=== PATIENT | male | born 1950 | race Caucasian/White ===

== ENCOUNTER 2016-11-20 13:05 | Emergency (ER) | payer MEDICARE, MEDICAID ==
[2016-11-20 13:12] VITALS: BMI 25.2
[2016-11-20] MEDS ORDERED: Sodium Chloride 0.9% 1,000 ML IV ONE (13:58)
[2016-11-20 14:30] LABS: BASO # 0.1 K/uL (0.0-0.2); BASO % 0.8 % (0.0-2.0); EOS # 0.4 K/uL (0.0-0.7); EOS % 4.1 % (0.0-4.0); HEMATOCRIT 42.2 % (35.0-51.0); LYMPH # 1.9 K/uL (1.0-4.3); LYMPH % 17.9 % (20.0-40.0); MEAN CELL VOLUME 84.4 fL (80.0-94.0); MEAN CORPUSCULAR HEMOGLOBIN 28.4 pg (27.0-31.0); MEAN CORPUSCULAR HGB CONC 33.7 g/dL (33.0-37.0); MEAN PLATELET VOLUME 8.5 fL (7.2-11.7); MONO # 0.6 K/uL (0.0-0.8); RED CELL DISTRIBUTION WIDTH 14.5 % (11.5-14.5); WHITE BLOOD COUNT 10.6 K/uL (4.8-10.8)
--- NOTE | 2016-11-20 14:36 | RAD ---
PROCEDURE: CHEST RADIOGRAPH, 1 VIEW HISTORY: Generalized weakness COMPARISON: Zero 03/24/2016. FINDINGS: LUNGS: Clear. PLEURA: No pneumothorax or pleural fluid seen. CARDIOVASCULAR: No radiographic findings to suggest acute or significant cardiovascular disease. OSSEOUS STRUCTURES: Healed left clavicular fracture and old healed right rib fractures. VISUALIZED UPPER ABDOMEN: Normal. OTHER FINDINGS: None. IMPRESSION: No active disease. No acute/significant interval changes. No preliminary report provided by emergency department personnel.
[2016-11-20 14:38] LABS: CHLORIDE 96 mmol/L (98-107); POTASSIUM 4.2 mmol/L (3.6-5.2); SODIUM 136 mmol/L (132-148)
[2016-11-20 14:40] LABS: BILIRUBIN,TOTAL 0.6 mg/dL (0.2-1.3); CARBON DIOXIDE 25 mmol/L (22-30); GFR AFRICAN-AMERICAN > 60
[2016-11-20 14:41] LABS: ALB/GLOB RATIO 1.3 (1.0-2.1); ALKALINE PHOSPHATASE 82 U/L (38-126); ALT/SGPT 14 U/L (21-72); AST/SGOT 24 U/L (17-59); BLOOD UREA NITROGEN 13 mg/dL (9-20); CALCIUM 8.6 mg/dl (8.6-10.4); GLUCOSE,RANDOM 112 mg/dL (75-110); PHOSPHOROUS 3.4 mg/dL (2.5-4.5); TOTAL PROTEIN 7.3 g/dL (6.3-8.3)
[2016-11-20 14:42] LABS: MAGNESIUM 1.5 mg/dL (1.6-2.3)
[2016-11-20] MEDS ORDERED: Sodium Chloride 0.9% 1,000 ML ONE (14:46)
[2016-11-20] MEDS ORDERED: Magnesium Sulfate 1 gm in D5W 1 GM/100 ML BAG IVPB ONE (15:14)
[2016-11-20 15:58] LABS: RBC URINE 3 /hpf (0-3); URINE BILIRUBIN NEGATIVE (NEGATIVE); URINE BLOOD NEGATIVE (NEGATIVE); URINE COLOR Yellow (YELLOW); URINE GLUCOSE (UA) 1+ mg/dL (Normal); URINE KETONE TRACE mg/dL (NEGATIVE); URINE LEUKOCYTE ESTERASE NEG Leu/uL (Negative); URINE PROTEIN NEGATIVE (NEGATIVE); URINE UROBILINOGEN NORMAL mg/dL (0.2-1.0); WBC URINE 1 /hpf (0-5)
--- NOTE | 2016-11-20 19:12 | C.PDOC ---
History Of Present Illness Pt c/o worsening of his Parkinson symptoms (tremor/stiffness). His medications were changes 2 weeks ago. His Pramipexole was discontinued. Time Seen by Provider: 11/20/16 13:50 Chief Complaint (Nursing): Weakness/Neurological Deficit History Per: Patient, EMS Onset/Duration Of Symptoms: Days (3) Current Symptoms Are (Timing): Still Present Current Symptoms: Generalized weakness Fall Associated With With Symptoms: No Severity: Moderate - Symptoms Of CVA Associated Symptoms: Decreased Ability To Walk Recent Head Trauma: No Past Medical History Reviewed: Historical Data, Nursing Documentation, Vital Signs Vital Signs: Last Vital Signs Temp 98.1 F 11/20/16 18:00 Pulse 89 11/20/16 18:00 Resp 20 11/20/16 18:00 BP 127/65 11/20/16 18:00 Pulse Ox 97 11/20/16 18:00 - Medical History PMH: Anxiety, Dementia, Depression, Diabetes, Fractures, HTN, Parkinson's Disease - [facility] Procedures COLONOSCOPY (08/22/13) INJECT/INFUSE ELECTROLYT (06/22/13) INJECT/INFUSE NEC (06/22/13) Family History: States: Unknown Family Hx - Social History Hx Tobacco Use: No Hx Alcohol Use: No Hx Substance Use: No - Immunization History Hx Tetanus Toxoid Vaccination: Yes Hx Influenza Vaccination: Yes Hx Pneumococcal Vaccination: Yes Review Of Systems Except As Marked, All Systems Reviewed And Found Negative. Constitutional: Positive for: Weakness. Negative for: Fever Cardiovascular: Negative for: Chest Pain Respiratory: Negative for: Shortness of Breath Gastrointestinal: Negative for: Vomiting, Abdominal Pain, Diarrhea Musculoskeletal: Negative for: Neck Pain, Back Pain Skin: Negative for: Rash Neurological: Negative for: Weakness, Numbness, Seizures, Headache Physical Exam - Physical Exam Appears: Chronically Ill Skin: Normal Color, Warm, Dry, No Rash Head: Atraumatic, Normacephalic Eye(s): bilateral: PERRL, EOMI Neck: Normal ROM, Supple Cardiovascular: Rhythm Regular Respiratory: Normal Breath Sounds, No Accessory Muscle Use Gastrointestinal/Abdominal: Soft, No Tenderness Extremity: Normal ROM Neurological/Psych: Oriented x3, Other (Mild tremor and stiffness in b/l upper and lower extremities) ED Course And Treatment - Laboratory Results Result Diagrams: 11/20/16 14:25 11/20/16 14:25 Lab Interpretation: No Acute Changes O2 Sat by Pulse Oximetry: 97 Pulse Ox Interpretation: Normal Progress Note: Pt feels better after taking the Rytary. Reassessment Condition: Improved Disposition Discussed With Dr.: Rashi Yarbrough Comment: He states that he has recently increased the dose of Rytary 2 weeks ago , but apparently the pt is still using the lower dose. He recommened increasing the frequency of Rytary to QID until pt starts taking the higher dose. Doctor Will See Patient In The: Office Counseled Patient/Family Regarding: Studies Performed, Diagnosis, Need For Followup - Disposition Referrals: Rashi Yarbrough MD [Staff Provider] - Disposition: HOME/ ROUTINE Disposition Time: 19:19 Condition: IMPROVED Additional Instructions: Take the Rytary (23.75mg/95mg) four times a day until you start the higher dose. Follow up with your doctor for further evaluation and treatment. Return to the ER if you develop worsening of symptoms or if you have any other concerns. Instructions: Parkinson Disease (ED) Forms: [employer] (Azeri) Print Language: LITHUANIAN - Clinical Impression Clinical Impression: Parkinson disease
[2016-11-20 19:34] VITALS: BP 135/74; PULSE 75; RESP 18; TEMP 98.5; O2SAT 99
== END 2016-11-20 19:34 | disposition home or self-care (01) ==
LOC: C.ER 13:05
DX: G20 Parkinson's disease (principal); F41.9 Anxiety disorder, unspecified; F03.90 Unspecified dementia, unspecified severity, without behavioral disturbance, psychotic disturbance, mood disturbance, and anxiety; I10 Essential (primary) hypertension; E11.9 Type 2 diabetes mellitus without complications; Z87.891 Personal history of nicotine dependence
CPT/HCPCS: 71010; 80053; 81001; 83735; 83880; 84100; 84484; 85025; 87086; 96361; 96365; 99285; J3475; J7040

== ENCOUNTER 2017-02-02 12:32 | Emergency (ER) | payer MEDICARE, MEDICAID ==
[2017-02-02 12:32] VITALS: BMI 25.2
--- NOTE | 2017-02-02 13:30 | C.PDOC ---
History Of Present Illness 66 y.o male, history of parkinsons disease and diabetes, presents to ED with c/ o tremors, weakness, and nausea for 3 days. Patient is a poor historian. Pt states he lives by himself. Patient has been seen in this ER several times in the past w/ similar presentation. Denies any specific complaints. Denies fever or other complaints. Time Seen by Provider: 02/02/17 13:03 Chief Complaint (Nursing): Weakness/Neurological Deficit History Per: Patient History/Exam Limitations: other (poor historian) Current Symptoms Are (Timing): Still Present Fall Associated With With Symptoms: No Past Medical History Reviewed: Historical Data, Nursing Documentation, Vital Signs Vital Signs: Last Vital Signs Temp 97.9 F 02/02/17 18:10 Pulse 90 02/02/17 18:10 Resp 18 02/02/17 18:10 BP 98/53 L 02/02/17 18:10 Pulse Ox 96 02/02/17 18:10 - Medical History PMH: Anxiety, Dementia, Depression, Diabetes, Fractures, HTN, Parkinson's Disease - [email or web address] Procedures COLONOSCOPY (08/22/13) INJECT/INFUSE ELECTROLYT (06/22/13) INJECT/INFUSE NEC (06/22/13) Family History: States: Unknown Family Hx - Social History Hx Tobacco Use: No Hx Alcohol Use: No Hx Substance Use: No - Immunization History Hx Tetanus Toxoid Vaccination: Yes Hx Influenza Vaccination: Yes Hx Pneumococcal Vaccination: Yes Review Of Systems Except As Marked, All Systems Reviewed And Found Negative. Constitutional: Positive for: Weakness, Other (generalized tremors). Negative for: Fever, Chills Cardiovascular: Negative for: Chest Pain Respiratory: Negative for: Cough, Shortness of Breath Gastrointestinal: Positive for: Nausea. Negative for: Vomiting Skin: Negative for: Rash Physical Exam - Physical Exam Appears: Non-toxic, No Acute Distress Skin: Warm, Dry Head: Atraumatic, Normacephalic Chest: Symmetrical, No Tenderness Cardiovascular: Rhythm Regular Respiratory: Normal Breath Sounds, No Rales, No Rhonchi, No Wheezing Gastrointestinal/Abdominal: Normal Exam, Soft, No Tenderness Back: Normal Inspection Extremity: Normal ROM Neurological/Psych: Oriented x3, Other (resting tremor) ED Course And Treatment - Laboratory Results Result Diagrams: 02/02/17 13:39 02/02/17 13:39 ECG: Interpreted By Me, Viewed By Me ECG Rhythm: Sinus Rhythm ECG Interpretation: No Acute Changes Interpretation Of ECG: No acute ST wave changes. Rate From EC O2 Sat by Pulse Oximetry: 97 (RA) Pulse Ox Interpretation: Normal Medical Decision Making Medical Decision Making: parkinsons - suspect exacerbation - pt lvies by himself, unable to care for self Plan: EKG, CxR, labs ordered. Progress: 500: accepte dto dr samuels service for managment of parkinsons meds. pt cannot care for self as has parkinsons, lives byhimself. Disposition - Disposition Disposition: HOSPITALIZED Disposition Time: 18:12 Condition: STABLE - Clinical Impression Clinical Impression: Parkinsons, Weakness - Scribe Statement The provider has reviewed the documentation as recorded by the Scribe SM All medical record entries made by the Scribe were at my direction and personally dictated by me. I have reviewed the chart and agree that the record accurately reflects my personal performance of the history, physical exam, medical decision making, and the department course for this patient. I have also personally directed, reviewed, and agree with the discharge instructions and disposition.
[2017-02-02 13:46] LABS: BASO # 0.1 K/uL (0.0-0.2); BASO % 0.5 % (0.0-2.0); EOS # 0.3 K/uL (0.0-0.7); EOS % 2.9 % (0.0-4.0); HEMATOCRIT 42.1 % (35.0-51.0); LYMPH # 1.6 K/uL (1.0-4.3); LYMPH % 15.8 % (20.0-40.0); MEAN CELL VOLUME 86.3 fL (80.0-94.0); MEAN CORPUSCULAR HEMOGLOBIN 28.9 pg (27.0-31.0); MEAN CORPUSCULAR HGB CONC 33.5 g/dL (33.0-37.0); MEAN PLATELET VOLUME 7.7 fL (7.2-11.7); MONO # 0.7 K/uL (0.0-0.8); MONO % 7.2 % (0.0-10.0); NRBC % 0.1 % (0.0-2.0); RED CELL DISTRIBUTION WIDTH 14.1 % (11.5-14.5); WHITE BLOOD COUNT 10.1 K/uL (4.8-10.8)
[2017-02-02 13:53] LABS: INR 1.1
--- NOTE | 2017-02-02 14:10 | RAD ---
PROCEDURE: CHEST RADIOGRAPH, 1 VIEW HISTORY: chest pain COMPARISON: None available. FINDINGS: LUNGS: Clear. PLEURA: No pneumothorax or pleural fluid seen. CARDIOVASCULAR: Atherosclerotic aortic calcifications. Cardiomediastinal silhouette is unchanged. OSSEOUS STRUCTURES: Multiple old right-sided rib fractures are re- demonstrated. VISUALIZED UPPER ABDOMEN: Normal. OTHER FINDINGS: None. IMPRESSION: No active disease.
[2017-02-02 14:15] LABS: ALB/GLOB RATIO 1.1 (1.0-2.1); ALKALINE PHOSPHATASE 82 U/L (38-126); ALT/SGPT 23 U/L (21-72); AST/SGOT 26 U/L (17-59); BILIRUBIN,TOTAL 0.7 mg/dL (0.2-1.3); BLOOD UREA NITROGEN 24 mg/dL (9-20); CALCIUM 8.5 mg/dl (8.6-10.4); CARBON DIOXIDE 24 mmol/L (22-30); CHLORIDE 94 mmol/L (98-107); GFR AFRICAN-AMERICAN > 60; GLUCOSE,RANDOM 112 mg/dL (75-110); POTASSIUM 3.7 mmol/L (3.6-5.2); SODIUM 131 mmol/L (132-148); TOTAL PROTEIN 7.9 g/dL (6.3-8.3)
[2017-02-02 14:27] LABS: RBC URINE 2 /hpf (0-3); URINE BACTERIA RARE (<OCC); URINE BILIRUBIN NEGATIVE (NEGATIVE); URINE BLOOD NEGATIVE (NEGATIVE); URINE COLOR Amber (YELLOW); URINE GLUCOSE (UA) NORMAL (Normal); URINE KETONE 1+ mg/dL (NEGATIVE); URINE LEUKOCYTE ESTERASE NEG Leu/uL (Negative); URINE PROTEIN NEGATIVE (NEGATIVE); WBC URINE 3 /hpf (0-5)
[2017-02-02] MEDS ORDERED: Carbidopa/Levodopa 25/250 PO STA (14:55)
[2017-02-02 18:10] VITALS: BP 98/53; PULSE 90; RESP 18; TEMP 97.9
[2017-02-02 18:13] VITALS: O2SAT 97
--- NOTE | 2017-02-02 19:48 | CP.PCM.HP ---
History of Present Illness - History of Present Illness History of Present Illness: Chief complaint: Dizziness History of present illness: 66-year-old male with history of Parkinson disease, diabetes, hypertension, hypercholesterolemia, diabetic neuropathy came to the emergency room with increasing tremor, weakness. He is also having some nausea. He is concerned about increasing tremor. Patient has recently seen by neurologist, the medication was adjusted, but the patient was not happy. Patient is currently taking carbidopa levodopa, at least 5 times daily. Sometimes he takes even higher dose. In spite of that his condition is not improving. Still noticing tremor, bradykinesia. Past medical history: Hypertension, diabetes, hypercholesterolemia, Parkinson disease, with disability , and recently also had a fall Surgical history none Allergies: Allergic to no medication Personal history: Patient lives by himself. He has several health daily. Social history: Nonsmoker nonalcoholic. Asst.: Patient is currently having no headache, no chest pain. Feeling okay. Denies any dizziness at this time. He had some tremor and weakness in the past and Vital signs reviewed No neck vein distention noted Chest good air entry bilaterally, no wheezing or rales noted CVS regular heart sound, no murmur noted Abdomen soft, nontender. Extremities no pedal edema Increasing shaking and tremor noted. Patient is able to ambulate with walker Patient's labs today Vital signs reviewed Chest x-ray nonspecific. EKG showing normal sinus rhythm. No ST-T changes noted Assessment and recognition: 66-year-old male now admitted to the hospital with weakness. Labs nonspecific. Hypertension controlled. Diabetes stable. Parkinson disease, some decompensation noted. Patient will need outpatient physical therapy. he wanted to go home at this time, there is no reason for him to stay in the hospital at this time. I workup will be done as an outpatient. I will have the patient as outpatient in 1 week. Patient recently had neurological testing and balance testing as an outpatient. We'll follow-up the results Present on Admission - Present on Admission Any Indicators Present on Admission: No History of DVT/PE: No History of Uncontrolled Diabetes: No Urinary Catheter: No Decubitus Ulcer Present: No Past Patient History - Infectious Disease Hx of Infectious Diseases: None - Tetanus Immunizations Tetanus Immunization: Unknown - Past Medical History & Family History Past Medical History?: Yes - Past Social History Smoking Status: Former Smoker - CARDIAC Hx Hypertension: Yes - PULMONARY Hx Respiratory Disorders: No - NEUROLOGICAL Hx Dementia: Yes Hx Parkinson's Disease: Yes - HEENT Hx HEENT Problems: No - RENAL Hx Chronic Kidney Disease: No - ENDOCRINE/METABOLIC Hx Endocrine Disorders: Yes Hx Diabetes Mellitus Type 2: Yes - HEMATOLOGICAL/ONCOLOGICAL Hx Blood Disorders: No - INTEGUMENTARY Hx Dermatological Problems: No - MUSCULOSKELETAL/RHEUMATOLOGICAL Hx Fractures: Yes - GASTROINTESTINAL Hx Gastrointestinal Disorders: No - GENITOURINARY/GYNECOLOGICAL Hx Genitourinary Disorders: No - PSYCHIATRIC Hx Anxiety: Yes Hx Depression: Yes Hx Substance Use: No - SURGICAL HISTORY Hx Surgeries: Yes Hx Eye Surgery: Yes - ANESTHESIA Hx Anesthesia: Yes Hx Anesthesia Reactions: No Hx Malignant Hyperthermia: No Meds Allergies/Adverse Reactions: Allergies Allergy/AdvReac Type Severity Reaction Status Date / Time No Known Allergies Allergy Verified 02/02/17 13:01 Results - Vital Signs Recent Vital Signs: Last Vital Signs Temp 97.9 F 02/02/17 18:10 Pulse 90 02/02/17 18:10 Resp 18 02/02/17 18:10 BP 98/53 L 02/02/17 18:10 Pulse Ox 97 02/02/17 18:15 - Labs Result Diagrams: 02/02/17 13:39 02/02/17 13:39 Labs: Laboratory Results - last 24 hr 02/02/17 02/02/17 02/02/17 13:39 13:39 13:39 WBC 10.1 RBC 4.87 Hgb 14.1 Hct 42.1 MCV 86.3 MCH 28.9 MCHC 33.5 RDW 14.1 Plt Count 340 D MPV 7.7 Neut % (Auto) 73.6 Lymph % (Auto) 15.8 L [place] % (Auto) 7.2 Eos % (Auto) 2.9 Baso % (Auto) 0.5 Neut # 7.4 H Lymph # 1.6 [place] # 0.7 Eos # 0.3 Baso # 0.1 PT 12.2 INR 1.1 APTT 28 Sodium 131 L Potassium 3.7 Chloride 94 L Carbon Dioxide 24 Anion Gap 17 BUN 24 H Creatinine 0.8 Est GFR ( Amer) > 60 Est GFR (Non-Af Amer) > 60 Random Glucose 112 H Calcium 8.5 L Total Bilirubin 0.7 AST 26 ALT 23 Alkaline Phosphatase 82 Troponin I < 0.0120 Total Protein 7.9 Albumin 4.1 Globulin 3.8 Albumin/Globulin Ratio 1.1 Urine Color Urine Clarity Urine pH Ur Specific [place] Urine Protein Urine Glucose (UA) Urine Ketones Urine Blood Urine Nitrate Urine Bilirubin Urine Urobilinogen Ur Leukocyte Esterase Urine WBC (Auto) Urine RBC (Auto) Ur Squamous Epith Cells Urine Bacteria Hyaline Casts 02/02/17 14:13 WBC RBC Hgb Hct MCV MCH MCHC RDW Plt Count MPV Neut % (Auto) Lymph % (Auto) [place] % (Auto) Eos % (Auto) Baso % (Auto) Neut # Lymph # [place] # Eos # Baso # PT INR APTT Sodium Potassium Chloride Carbon Dioxide Anion Gap BUN Creatinine Est GFR ( Amer) Est GFR (Non-Af Amer) Random Glucose Calcium Total Bilirubin AST ALT Alkaline Phosphatase Troponin I Total Protein Albumin Globulin Albumin/Globulin Ratio Urine Color [place] Urine Clarity Clear Urine pH 5.0 Ur Specific [place] 1.024 Urine Protein Negative Urine Glucose (UA) Normal Urine Ketones 1+ H Urine Blood Negative Urine Nitrate Negative Urine Bilirubin Negative Urine Urobilinogen 2.0 Ur Leukocyte Esterase Neg Urine WBC (Auto) 3 Urine RBC (Auto) 2 Ur Squamous Epith Cells 1 Urine Bacteria Rare Hyaline Casts 3-5 H
[2017-02-03] MEDS ORDERED: Enoxaparin 40 mg Syringe SC SCH (10:00)
--- NOTE | 2017-02-05 19:26 | CARD ---
APPROVED REPORT EKG Measurement Heart [id number] <Conclusion> Normal sinus rhythm Normal ECG
== END 2017-02-02 20:45 | disposition home or self-care (01) ==
LOC: C.ER 12:32 → C.9E 14:33 → INTOOBSV 14:33 → UNDOADMOB 14:33 → C.3T 19:18 → C.9E 19:18 → UNDODISOB 19:42 → C.3T 20:11 → C.9E 20:11
DX: G20 Parkinson's disease (principal); R53.1 Weakness; E11.40 Type 2 diabetes mellitus with diabetic neuropathy, unspecified; E78.00 Pure hypercholesterolemia, unspecified; F03.90 Unspecified dementia, unspecified severity, without behavioral disturbance, psychotic disturbance, mood disturbance, and anxiety; I10 Essential (primary) hypertension; Z87.891 Personal history of nicotine dependence

== ENCOUNTER 2017-02-24 14:01 | Emergency (ER) | payer MEDICARE, MEDICAID ==
[2017-02-24 14:40] VITALS: BMI 31.4
[2017-02-24 14:45] VITALS: RESP 18
[2017-02-24 15:21] VITALS: TEMP 98.4
--- NOTE | 2017-02-24 15:39 | C.PDOC ---
History Of Present Illness 66 y/o male with PMHx of Parkinson's disease presents to ED sent by [facility] for low blood pressure. At ED patient is asymptomatic and has no physical complaints at this time. Time Seen by Provider: 02/24/17 14:23 Chief Complaint (Nursing): Medical Clearance History Per: Patient History/Exam Limitations: no limitations Onset/Duration Of Symptoms: Days Current Symptoms Are (Timing): Still Present Past Medical History Reviewed: Historical Data, Nursing Documentation, Vital Signs Vital Signs: Last Vital Signs Temp 98.4 F 02/24/17 15:30 Pulse 92 H 02/24/17 15:30 Resp 18 02/24/17 15:30 BP 137/74 02/24/17 15:30 Pulse Ox 98 02/24/17 15:40 - Medical History PMH: Anxiety, Dementia, Depression, Diabetes, Fractures, HTN, Parkinson's Disease Surgical History: No Surg Hx - [facility] Procedures COLONOSCOPY (08/22/13) INJECT/INFUSE ELECTROLYT (06/22/13) INJECT/INFUSE NEC (06/22/13) Family History: States: No Known Family Hx - Social History Hx Tobacco Use: No Hx Alcohol Use: No Hx Substance Use: No - Immunization History Hx Tetanus Toxoid Vaccination: Yes Hx Influenza Vaccination: Yes Hx Pneumococcal Vaccination: Yes Review Of Systems ENT: Negative for: Nose Discharge Respiratory: Negative for: Shortness of Breath Gastrointestinal: Negative for: Nausea, Vomiting Skin: Negative for: Rash Neurological: Negative for: Weakness, Numbness, Dizziness Physical Exam - Physical Exam Appears: Non-toxic, No Acute Distress Skin: Warm, Dry, No Rash Head: Atraumatic, Normacephalic Eye(s): bilateral: Normal Inspection Oral Mucosa: Moist Neck: Supple Cardiovascular: Rhythm Regular Respiratory: Normal Breath Sounds, No Rales, No Rhonchi, No Wheezing Gastrointestinal/Abdominal: Soft, No Tenderness, No Guarding, No Rebound Extremity: Capillary Refill (<2 seconds), No Deformity, Other (+cog wheeling with extension of flexed arms ) Pulses: Left Radial: Normal, Right Radial: Normal Neurological/Psych: Oriented x3, Normal Motor, Normal Sensation Gait: Steady ED Course And Treatment - Laboratory Results Result Diagrams: 02/24/17 15:39 02/24/17 15:39 Lab Interpretation: Abnormal (Na 129) ECG: Interpreted By Me ECG Rhythm: Sinus Rhythm ECG Interpretation: Normal O2 Sat by Pulse Oximetry: 98 (RA) Pulse Ox Interpretation: Normal Reevaluation Time: 18:35 Reassessment Condition: Improved (BP improved and patient is asymptomatic) - Physician Consult Information Time Consulting Physician Contacted: 18:35 Physician Contacted: Nidhi Aj Outcome Of Conversation: Patient to remain on observation for electrolyte correction and monitoring of BP. Disposition - Disposition Disposition: HOSPITALIZED Disposition Time: 18:36 Condition: IMPROVED - Clinical Impression Clinical Impression: Hypotension, Hyponatremia - Scribe Statement The provider has reviewed the documentation as recorded by the Celesteibfabian Jaffe All medical record entries made by the Celesteibfabian were at my direction and personally dictated by me. I have reviewed the chart and agree that the record accurately reflects my personal performance of the history, physical exam, medical decision making, and the department course for this patient. I have also personally directed, reviewed, and agree with the discharge instructions and disposition.
[2017-02-24 15:51] LABS: BASO # 0.1 K/uL (0.0-0.2); BASO % 0.7 % (0.0-2.0); EOS # 0.5 K/uL (0.0-0.7); EOS % 4.5 % (0.0-4.0); LYMPH # 2.1 K/uL (1.0-4.3); MEAN CELL VOLUME 86.6 fL (80.0-94.0); MEAN CORPUSCULAR HEMOGLOBIN 29.4 pg (27.0-31.0); MEAN CORPUSCULAR HGB CONC 33.9 g/dL (33.0-37.0); MEAN PLATELET VOLUME 8.3 fL (7.2-11.7); MONO # 0.7 K/uL (0.0-0.8); MONO % 6.6 % (0.0-10.0); RED CELL DISTRIBUTION WIDTH 13.8 % (11.5-14.5)
[2017-02-24 16:11] LABS: ALB/GLOB RATIO 1.6 (1.0-2.1); ALKALINE PHOSPHATASE 90 U/L (38-126); ALT/SGPT 12 U/L (21-72); AST/SGOT 17 U/L (17-59); BILIRUBIN,TOTAL 0.5 mg/dL (0.2-1.3); BLOOD UREA NITROGEN 18 mg/dL (9-20); CALCIUM 7.7 mg/dl (8.6-10.4); CARBON DIOXIDE 24 mmol/L (22-30); CHLORIDE 96 mmol/L (98-107); GFR AFRICAN-AMERICAN > 60; GLUCOSE,RANDOM 136 mg/dL (75-110); MAGNESIUM 1.5 mg/dL (1.6-2.3); POTASSIUM 3.6 mmol/L (3.6-5.2); SODIUM 129 mmol/L (132-148); TOTAL PROTEIN 5.8 g/dL (6.3-8.3)
[2017-02-24 17:02] LABS: RBC URINE 1 /hpf (0-3); URINE BACTERIA RARE (<OCC); URINE BILIRUBIN NEGATIVE (NEGATIVE); URINE BLOOD NEGATIVE (NEGATIVE); URINE COLOR Yellow (YELLOW); URINE GLUCOSE (UA) NORMAL (Normal); URINE KETONE TRACE mg/dL (NEGATIVE); URINE LEUKOCYTE ESTERASE NEG Leu/uL (Negative); URINE PROTEIN NEGATIVE (NEGATIVE); URINE UROBILINOGEN NORMAL mg/dL (0.2-1.0); WBC URINE < 1 /hpf (0-5)
[2017-02-24] MEDS ORDERED: Sodium Chloride 0.9% 1,000 ML IV ONE (18:25)
[2017-02-24 21:15] VITALS: BP 115/68; PULSE 91; O2SAT 96
--- NOTE | 2017-02-24 21:52 | CP.PCM.HP ---
Past Patient History - Infectious Disease Hx of Infectious Diseases: None - Tetanus Immunizations Tetanus Immunization: Unknown - Past Medical History & Family History Past Medical History?: Yes - Past Social History Smoking Status: Former Smoker - CARDIAC Hx Hypertension: Yes - PULMONARY Hx Respiratory Disorders: No - NEUROLOGICAL Hx Dementia: Yes Hx Parkinson's Disease: Yes - HEENT Hx HEENT Problems: No - RENAL Hx Chronic Kidney Disease: No - ENDOCRINE/METABOLIC Hx Endocrine Disorders: Yes Hx Diabetes Mellitus Type 2: Yes - HEMATOLOGICAL/ONCOLOGICAL Hx Blood Disorders: No - INTEGUMENTARY Hx Dermatological Problems: No - MUSCULOSKELETAL/RHEUMATOLOGICAL Hx Fractures: Yes - GASTROINTESTINAL Hx Gastrointestinal Disorders: No - GENITOURINARY/GYNECOLOGICAL Hx Genitourinary Disorders: No - PSYCHIATRIC Hx Anxiety: Yes Hx Depression: Yes Hx Substance Use: No - SURGICAL HISTORY Hx Surgeries: Yes Hx Eye Surgery: Yes - ANESTHESIA Hx Anesthesia: Yes Hx Anesthesia Reactions: No Hx Malignant Hyperthermia: No Meds Allergies/Adverse Reactions: Allergies Allergy/AdvReac Type Severity Reaction Status Date / Time No Known Allergies Allergy Verified 02/24/17 14:40 Results - Vital Signs Recent Vital Signs: Last Vital Signs Temp 98.4 F 02/24/17 21:14 Pulse 91 H 02/24/17 21:14 Resp 18 02/24/17 21:14 BP 115/68 02/24/17 21:14 Pulse Ox 96 02/24/17 21:14 - Labs Result Diagrams: 02/24/17 15:39 02/24/17 15:39 Labs: Laboratory Results - last 24 hr 02/24/17 02/24/17 02/24/17 15:07 15:39 15:39 WBC 10.0 RBC 4.38 L Hgb 12.9 Hct 38.0 MCV 86.6 MCH 29.4 MCHC 33.9 RDW 13.8 Plt Count 275 MPV 8.3 Neut % (Auto) 67.2 Lymph % (Auto) 21.0 [place] % (Auto) 6.6 Eos % (Auto) 4.5 H Baso % (Auto) 0.7 Neut # 6.7 Lymph # 2.1 [place] # 0.7 Eos # 0.5 Baso # 0.1 Sodium 129 L Potassium 3.6 Chloride 96 L Carbon Dioxide 24 Anion Gap 13 BUN 18 Creatinine 0.6 L Est GFR ( Amer) > 60 Est GFR (Non-Af Amer) > 60 POC Glucose (mg/dL) 144 H Random Glucose 136 H Calcium 7.7 L Magnesium 1.5 L Total Bilirubin 0.5 AST 17 D ALT 12 L D Alkaline Phosphatase 90 Total Protein 5.8 L Albumin 3.5 Globulin 2.2 Albumin/Globulin Ratio 1.6 Urine Color Urine Clarity Urine pH Ur Specific [place] Urine Protein Urine Glucose (UA) Urine Ketones Urine Blood Urine Nitrate Urine Bilirubin Urine Urobilinogen Ur Leukocyte Esterase Urine WBC (Auto) Urine RBC (Auto) Ur Squamous Epith Cells Urine Bacteria Hyaline Casts 02/24/17 16:24 WBC RBC Hgb Hct MCV MCH MCHC RDW Plt Count MPV Neut % (Auto) Lymph % (Auto) [place] % (Auto) Eos % (Auto) Baso % (Auto) Neut # Lymph # [place] # Eos # Baso # Sodium Potassium Chloride Carbon Dioxide Anion Gap BUN Creatinine Est GFR ( Amer) Est GFR (Non-Af Amer) POC Glucose (mg/dL) Random Glucose Calcium Magnesium Total Bilirubin AST ALT Alkaline Phosphatase Total Protein Albumin Globulin Albumin/Globulin Ratio Urine Color Yellow Urine Clarity Clear Urine pH 6.0 Ur Specific [place] 1.017 Urine Protein Negative Urine Glucose (UA) Normal Urine Ketones Trace Urine Blood Negative Urine Nitrate Negative Urine Bilirubin Negative Urine Urobilinogen Normal Ur Leukocyte Esterase Neg Urine WBC (Auto) < 1 Urine RBC (Auto) 1 Ur Squamous Epith Cells < 1 Urine Bacteria Rare Hyaline Casts 6-10 H
[2017-02-24] MEDS ORDERED: Magnesium Oxide 400 mg Tab UD PO STA (21:54)
== END 2017-02-24 21:53 | disposition home or self-care (01) ==
LOC: C.ER 14:01 → C.9E 18:33 → UNDOADMOB 18:33 → C.ER 21:53 → C.3T 21:55 → C.9E 21:55 → C.ER 22:15 → C.3T 22:53 → C.9E 22:53 → UNDODISOB 23:00
DX: I95.9 Hypotension, unspecified (principal); E87.1 Hypo-osmolality and hyponatremia
CPT/HCPCS: 80053; 81001; 82948; 83735; 85025; 96360; 99283; J7040

== ENCOUNTER 2017-07-04 16:56 | Inpatient (IN) | payer MEDICARE, MEDICAID ==
[2017-07-04 17:14] VITALS: BMI 26.6
--- NOTE | 2017-07-04 17:56 | RAD ---
PROCEDURE: CHEST RADIOGRAPH, 1 VIEW HISTORY: SOB COMPARISON: Comparison chest 02/02/2017. FINDINGS: LUNGS: Minor bibasilar atelectasis. PLEURA: No pneumothorax or pleural fluid seen. CARDIOVASCULAR: Normal. OSSEOUS STRUCTURES: Re- demonstrated are multiple old healed right posterior rib fracture deformities. . Old healed fracture deformity left mid clavicle. Mild degenerative changes both shoulder girdles. . Minor multilevel degenerative spondylosis of the thoracic spine. VISUALIZED UPPER ABDOMEN: Normal. OTHER FINDINGS: None. IMPRESSION: Mild bibasilar atelectasis.
[2017-07-04 18:00] LABS: BASO # 0.1 K/uL (0.0-0.2); BASO % 0.5 % (0.0-2.0); EOS # 0.2 K/uL (0.0-0.7); EOS % 1.6 % (0.0-4.0); HEMOGLOBIN 12.9 g/dL (12.0-18.0); LYMPH # 1.9 K/uL (1.0-4.3); LYMPH % 15.9 % (20.0-40.0); MEAN CORPUSCULAR HEMOGLOBIN 27.1 pg (27.0-31.0); MEAN CORPUSCULAR HGB CONC 33.6 g/dL (33.0-37.0); MEAN PLATELET VOLUME 7.9 fL (7.2-11.7); MONO # 0.9 K/uL (0.0-0.8); MONO % 7.1 % (0.0-10.0); NEUT % 74.9 % (50.0-75.0); RBC 4.76 Mil/uL (4.40-5.90); RED CELL DISTRIBUTION WIDTH 15.6 % (11.5-14.5)
[2017-07-04 18:03] LABS: MEAN CELL VOLUME 80.7 fL (80.0-94.0)
[2017-07-04 18:13] LABS: ALB/GLOB RATIO 1.1 (1.0-2.1); ALT/SGPT 17 U/L (21-72); AST/SGOT 20 U/L (17-59); BLOOD UREA NITROGEN 15 mg/dL (9-20); GFR AFRICAN-AMERICAN > 60; GFR NON-AFRICAN AMERICAN > 60; SQUAMOUS EPITHIAL < 1 /hpf (0-5); URINE BILIRUBIN NEGATIVE (NEGATIVE); URINE BLOOD NEGATIVE (NEGATIVE); URINE CLARITY Clear (Clear); URINE COLOR Yellow (YELLOW); URINE GLUCOSE (UA) 1+ mg/dL (Normal); URINE LEUKOCYTE ESTERASE NEG Leu/uL (Negative); URINE PROTEIN 1+ mg/dL (NEGATIVE); URINE UROBILINOGEN NORMAL mg/dL (0.2-1.0)
--- NOTE | 2017-07-04 18:22 | C.PDOC ---
History Of Present Illness 66 y/o male with a history of Parkinson's Disease presents to the ED with an unstable gait. Patient is complaining of shaking and tremors. He lives alone at home with an at home health sociology research assistant to help with minor tasks. In the past he has refused admittance to a intermediate. However, today patient is amenable to intermediate admission. PMD: Dr. Nidhi Aj Time Seen by Provider: 07/04/17 17:08 Chief Complaint (Nursing): Back Pain History Per: Patient History/Exam Limitations: no limitations Onset/Duration Of Symptoms: Days Current Symptoms Are (Timing): Still Present Past Medical History Vital Signs: Last Vital Signs Temp 98.7 F 07/04/17 17:08 Pulse 90 07/04/17 17:08 Resp 20 07/04/17 17:08 BP 152/83 H 07/04/17 17:08 Pulse Ox 97 07/04/17 18:55 - Medical History PMH: Anxiety, Dementia, Depression, Diabetes, Fractures, HTN, Parkinson's Disease Denies: Chronic Kidney Disease Surgical History: No Surg Hx - [facility] Procedures COLONOSCOPY (08/22/13) INJECT/INFUSE ELECTROLYT (06/22/13) INJECT/INFUSE NEC (06/22/13) Family History: States: No Known Family Hx - Social History Hx Tobacco Use: No Hx Alcohol Use: No Hx Substance Use: No - Immunization History Hx Tetanus Toxoid Vaccination: Yes Hx Influenza Vaccination: Yes Hx Pneumococcal Vaccination: Yes Review Of Systems Except As Marked, All Systems Reviewed And Found Negative. Neurological: Positive for: Other (unstable gait and tremors) Physical Exam - Physical Exam Appears: No Acute Distress, Other (no complaints of pain) Skin: Normal Color, Warm, Dry Head: Atraumatic, Normacephalic Eye(s): bilateral: Normal Inspection, PERRL, EOMI Nose: Normal Neck: Normal, Normal ROM, Supple Cardiovascular: Rhythm Regular, No Murmur Respiratory: Normal Breath Sounds Gastrointestinal/Abdominal: Normal Exam Back: Normal Inspection, No CVA Tenderness, No Vertebral Tenderness Extremity: Normal ROM, No Pedal Edema, No Deformity Neurological/Psych: Oriented x3 Gait: Unable To Assess (patient will not walk, denies any falls) ED Course And Treatment - Laboratory Results Result Diagrams: 07/04/17 17:54 04/29/18 17:54 Lab Interpretation: Normal ECG: Interpreted By Me ECG Rhythm: Sinus Rhythm ECG Interpretation: Normal Rate From EC O2 Sat by Pulse Oximetry: 97 Pulse Ox Interpretation: Normal - Radiology CXR: Interpreted by Me, Read By Radiologist CXR Interpretation: Yes: No Acute Disease Reevaluation Time: 18:20 Reassessment Condition: Unchanged - Physician Consult Information Outcome Of Conversation: 1715, 1815, d/w fito Rob to adm med/surg Medical Decision Making Medical Decision Making: gait apraxia vs advanced dementia/Parkinsons pt lives alone ?? with morning DIRECTOR [employer]CIAL SYSTEMS, requires more intense nursing/living environment. Disposition Doctor Will See Patient In The: Hospital Counseled Patient/Family Regarding: Studies Performed, Diagnosis - Disposition Disposition: HOSPITALIZED Disposition Time: 18:22 Condition: GOOD - Clinical Impression Clinical Impression: Gait apraxia of elderly, Parkinson disease - Scribe Statement The provider has reviewed the documentation as recorded by the Scribe ( Brett Lee) Provider Attestation: All medical record entries made by the Scribe were at my direction and personally dictated by me. I have reviewed the chart and agree that the record accurately reflects my personal performance of the history, physical exam, medical decision making, and the department course for this patient. I have also personally directed, reviewed, and agree with the discharge instructions and disposition.
[2017-07-04 18:24] LABS: B-TYPE NATRIURETIC PEPTIDE 40.5 pg/mL (0-900)
--- NOTE | 2017-07-04 20:41 | CP.PCM.HP ---
Past Patient History - Infectious Disease Hx of Infectious Diseases: None - Tetanus Immunizations Tetanus Immunization: Unknown - Past Medical History & Family History Past Medical History?: Yes - Past Social History Smoking Status: Former Smoker - CARDIAC Hx Hypertension: Yes - PULMONARY Hx Respiratory Disorders: No - NEUROLOGICAL Hx Dementia: Yes Hx Parkinson's Disease: Yes - HEENT Hx HEENT Problems: No - RENAL Hx Chronic Kidney Disease: No - ENDOCRINE/METABOLIC Hx Endocrine Disorders: Yes Hx Diabetes Mellitus Type 2: Yes - HEMATOLOGICAL/ONCOLOGICAL Hx Blood Disorders: No - INTEGUMENTARY Hx Dermatological Problems: No - MUSCULOSKELETAL/RHEUMATOLOGICAL Hx Fractures: Yes - GASTROINTESTINAL Hx Gastrointestinal Disorders: No - GENITOURINARY/GYNECOLOGICAL Hx Genitourinary Disorders: No - PSYCHIATRIC Hx Anxiety: Yes Hx Depression: Yes Hx Substance Use: No - SURGICAL HISTORY Hx Surgeries: Yes Hx Eye Surgery: Yes - ANESTHESIA Hx Anesthesia: Yes Hx Anesthesia Reactions: No Hx Malignant Hyperthermia: No Meds Allergies/Adverse Reactions: Allergies Allergy/AdvReac Type Severity Reaction Status Date / Time No Known Allergies Allergy Verified 02/24/17 14:40 Results - Vital Signs Recent Vital Signs: Last Vital Signs Temp 98.7 F 07/04/17 17:08 Pulse 91 H 07/04/17 19:35 Resp 22 07/04/17 19:35 BP 149/87 07/04/17 19:35 Pulse Ox 97 07/04/17 19:38 - Labs Result Diagrams: 07/04/17 17:54 07/04/17 17:54 Labs: Laboratory Results - last 24 hr 07/04/17 07/04/17 07/04/17 17:54 17:54 17:54 WBC 12.0 H RBC 4.76 Hgb 12.9 Hct 38.4 MCV 80.7 D MCH 27.1 MCHC 33.6 RDW 15.6 H Plt Count 278 MPV 7.9 Neut % (Auto) 74.9 Lymph % (Auto) 15.9 L [place] % (Auto) 7.1 Eos % (Auto) 1.6 Baso % (Auto) 0.5 Neut # (Auto) 9.0 H Lymph # (Auto) 1.9 [place] # (Auto) 0.9 H Eos # (Auto) 0.2 Baso # (Auto) 0.1 Sodium 139 Potassium 3.6 Chloride 99 Carbon Dioxide 28 Anion Gap 16 BUN 15 Creatinine 0.6 L Est GFR ( Amer) > 60 Est GFR (Non-Af Amer) > 60 Random Glucose 122 H Calcium 9.0 Total Bilirubin 0.5 AST 20 ALT 17 L D Alkaline Phosphatase 101 Troponin I < 0.0120 NT-Pro-B Natriuret Pep 40.5 Total Protein 7.7 Albumin 4.0 Globulin 3.7 Albumin/Globulin Ratio 1.1 Urine Color Yellow Urine Clarity Clear Urine pH 6.0 Ur Specific [place] 1.028 Urine Protein 1+ H Urine Glucose (UA) 1+ H Urine Ketones 1+ H Urine Blood Negative Urine Nitrate Negative Urine Bilirubin Negative Urine Urobilinogen Normal Ur Leukocyte Esterase Neg Urine WBC (Auto) 1 Urine RBC (Auto) 9 H Ur Squamous Epith Cells < 1
[2017-07-04] MEDS: Carbidopa/Levodopa 25/250 PO SCH ×2 (21:09→22:20)
[2017-07-04] MEDS: (Novolin R) Insulin Human Regular 100 units/ml vial SC SCH (21:52)
[2017-07-04] MEDS ORDERED: CARBIDOPA PO SCH (22:00)
[2017-07-04] MEDS ORDERED: LEVODOPA PO SCH (22:00)
[2017-07-04 22:01] VITALS: RESP 20
[2017-07-05] MEDS: (Novolin R) Insulin Human Regular 100 units/ml vial SC SCH ×4 (07:28→21:47)
[2017-07-05] MEDS: Enoxaparin 40 mg Syringe SC SCH (09:57)
[2017-07-05] MEDS: GlipiZIDE 10 mg SR Tab PO SCH ×2 (09:57→17:26)
[2017-07-05] MEDS: Carbidopa/Levodopa 25/250 PO SCH ×4 (09:57→21:49)
--- NOTE | 2017-07-05 23:26 | CP.PCM.PN ---
Subjective - Date & Time of Evaluation Date of Evaluation: 07/05/17 Time of Evaluation: 23:26 Objective - Vital Signs/Intake and Output Vital Signs (last 24 hours): Temp Pulse Resp BP Pulse Ox 98.0 F 79 20 120/78 97 07/05/17 20:43 07/05/17 20:43 07/05/17 15:00 07/05/17 20:43 07/05/17 15:00 Intake and Output: 07/05/17 07/06/17 18:59 06:59 Intake Total 480 Balance 480 - Medications Medications: Current Medications Carbidopa/Levodopa (Sinemet) 1 tab PO QID [facility] Last Admin: 07/05/17 21:49 Dose: 1 tab Enoxaparin Sodium (Lovenox) 40 mg SC DAILY [facility] Last Admin: 07/05/17 09:57 Dose: 40 mg Glipizide (Glucotrol Xl) 10 mg PO BID [facility] Last Admin: 07/05/17 17:26 Dose: 10 mg Home Med (Carbidopa/Levodopa [Rytary Er 36.25 Mg-145 Mg Cap]) 1 cer PO HS [facility] Insulin Human Regular (Novolin R) 0 unit SC ACHS [facility] PRN Reason: Protocol Last Admin: 07/05/17 21:47 Dose: Not Given Sitagliptin Phosphate (Januvia) 50 mg PO DAILY [facility] Last Admin: 07/05/17 09:57 Dose: 50 mg - Labs Labs: 07/04/17 17:54 07/04/17 17:54
[2017-07-06 07:07] LABS: BASO # 0.1 K/uL (0.0-0.2); BASO % 0.9 % (0.0-2.0); EOS # 0.8 K/uL (0.0-0.7); EOS % 7.5 % (0.0-4.0); HEMOGLOBIN 13.9 g/dL (12.0-18.0); LYMPH # 2.1 K/uL (1.0-4.3); LYMPH % 19.6 % (20.0-40.0); MEAN CELL VOLUME 80.6 fL (80.0-94.0); MEAN CORPUSCULAR HEMOGLOBIN 27.6 pg (27.0-31.0); MEAN CORPUSCULAR HGB CONC 34.2 g/dL (33.0-37.0); MEAN PLATELET VOLUME 7.2 fL (7.2-11.7); NEUT # 6.7 K/uL (1.8-7.0); NRBC % 0.1 % (0.0-2.0); RBC 5.02 Mil/uL (4.40-5.90); RED CELL DISTRIBUTION WIDTH 15.5 % (11.5-14.5); WHITE BLOOD COUNT 10.7 K/uL (4.8-10.8)
--- NOTE | 2017-07-06 07:09 | CP.PCM.CON ---
History of Present Illness - History of Present Illness History of Present Illness: CONSULTATION DICTATED REC RISK OF FALL NEW RIGHT SIDE WEAKNESS R/O NEW CENTRAL PROCESS MRI / CAROTID Rx STROKE PROPHYLAXIS GAIT AND PT FALL PRECAUTION ADJUST PD MEDS THANKS Past Patient History - Infectious Disease Hx of Infectious Diseases: None - Tetanus Immunizations Tetanus Immunization: Unknown - Past Medical History & Family History Past Medical History?: Yes - Past Social History Smoking Status: Never Smoked - CARDIAC Hx Hypertension: Yes - PULMONARY Hx Respiratory Disorders: No - NEUROLOGICAL Hx Dementia: Yes Hx Parkinson's Disease: Yes - HEENT Hx HEENT Problems: No - RENAL Hx Chronic Kidney Disease: No - ENDOCRINE/METABOLIC Hx Diabetes Mellitus Type 2: Yes - HEMATOLOGICAL/ONCOLOGICAL Hx Blood Disorders: No - INTEGUMENTARY Hx Dermatological Problems: No - MUSCULOSKELETAL/RHEUMATOLOGICAL Hx Falls: No - GASTROINTESTINAL Hx Gastrointestinal Disorders: No - GENITOURINARY/GYNECOLOGICAL Hx Genitourinary Disorders: No - PSYCHIATRIC Hx Substance Use: No - SURGICAL HISTORY Hx Surgeries: Yes Hx Eye Surgery: Yes - ANESTHESIA Hx Anesthesia: Yes Hx Anesthesia Reactions: No Hx Malignant Hyperthermia: No Meds Allergies/Adverse Reactions: Allergies Allergy/AdvReac Type Severity Reaction Status Date / Time No Known Allergies Allergy Verified 02/24/17 14:40 - Medications Medications: Current Medications Amantadine HCl (Amantadine 100 Mg Cap) 100 mg PO BID [facility] Aspirin (Ecotrin) 81 mg PO DAILY [facility] Carbidopa/Levodopa (Sinemet) 1 tab PO QID [facility] Last Admin: 07/05/17 21:49 Dose: 1 tab Clonazepam (Klonopin) 0.5 mg PO HS [facility] Enoxaparin Sodium (Lovenox) 40 mg SC DAILY [facility] Last Admin: 07/05/17 09:57 Dose: 40 mg Glipizide (Glucotrol Xl) 10 mg PO BID [facility] Last Admin: 07/05/17 17:26 Dose: 10 mg Home Med (Carbidopa/Levodopa [Rytary Er 36.25 Mg-145 Mg Cap]) 1 cer PO HS [facility] Insulin Human Regular (Novolin R) 0 unit SC ACHS [facility] PRN Reason: Protocol Last Admin: 07/05/17 21:47 Dose: Not Given Sitagliptin Phosphate (Januvia) 50 mg PO DAILY [facility] Last Admin: 07/05/17 09:57 Dose: 50 mg Results - Vital Signs Recent Vital Signs: Last Vital Signs Temp 98.3 F 07/05/17 23:15 Pulse 87 07/05/17 23:15 Resp 20 07/05/17 23:15 BP 144/89 07/05/17 23:15 Pulse Ox 98 07/05/17 23:15 - Labs Result Diagrams: 07/04/17 17:54 07/04/17 17:54 Labs: Laboratory Results - last 24 hr 07/05/17 07/05/17 07/05/17 11:33 16:19 21:14 POC Glucose (mg/dL) 206 H 132 H 186 H 07/06/17 06:29 POC Glucose (mg/dL) 102
[2017-07-06 07:44] LABS: ALB/GLOB RATIO 1.1 (1.0-2.1); ALBUMIN 3.8 g/dL (3.5-5.0); ALT/SGPT 10 U/L (21-72); AST/SGOT 23 U/L (17-59); BLOOD UREA NITROGEN 15 mg/dL (9-20); CALCIUM 8.9 mg/dl (8.6-10.4); GFR AFRICAN-AMERICAN > 60; GFR NON-AFRICAN AMERICAN > 60
[2017-07-06] MEDS: (Novolin R) Insulin Human Regular 100 units/ml vial SC SCH ×4 (08:33→22:26)
[2017-07-06] MEDS: Enoxaparin 40 mg Syringe SC SCH (09:51)
[2017-07-06] MEDS: Carbidopa/Levodopa 25/250 PO SCH ×4 (09:51→21:08)
[2017-07-06] MEDS: GlipiZIDE 10 mg SR Tab PO SCH ×2 (09:52→17:14)
[2017-07-06 12:02] LABS: HDL CHOLESTEROL 43 mg/dL (30-70)
[2017-07-06 12:20] LABS: FREE T4 1.45 ng/dL (0.78-2.19)
[2017-07-06 12:24] LABS: LDL CHOLESTEROL 110 mg/dL (0-129)
[2017-07-06 13:11] LABS: FOLATE 10.5 ng/mL
--- NOTE | 2017-07-06 17:15 | CON ---
DATE: ATTENDING PHYSICIAN: Nidhi Aj MD The patient is in room number 556, bed B. REASON FOR CONSULTATION: Frequent falls, worsening Parkinson disease. CHIEF COMPLAINT: The patient was brought into [facility] with a history of frequent falls and inability to take care of himself due to his health issues. From neurological point of view, I was called in to evaluate him for further management. HISTORY OF PRESENT ILLNESS: Mr. Vishnu Ramos is a 66-year-old right-handed male who is known to me on previous outpatient visits for his Parkinson disease. He has been stable with medication and again presenting with the risk of fall and worsening tremor and walking. No history of recent fall or head trauma. However, he admits new weakness of his right side to compare with the left side. Sleep is disturbed with dreams and increasing his rigidity. PAST MEDICAL HISTORY: Diabetes mellitus, hypertension, Parkinson disease. PERSONAL HISTORY: Denies smoking or alcohol use. MEDICATIONS: Trazodone, carbidopa/levodopa, Pramipexole, metformin, glipizide, Januvia. REVIEW OF SYSTEMS: The 12-point system being reviewed from neuro, frequent risk of falls. PHYSICAL EXAMINATION: VITAL SIGNS: Blood pressure 144/89, mean artery pressure 107, respiratory rate 16, temperature afebrile. NECK: Supple. No carotid bruits. HEART: Heart sounds regular. CHEST: Fair air entry. EXTREMITIES: No edema in legs. NEUROLOGIC EXAMINATION: Mental status examination: He is awake, alert, and oriented to person, place, and time. Speech is hypophonic with lingual tremor. Mouth is moist. Cranial nerve examination: Visual field respond to visual threat. Pupils reactive to light. Extraocular movement markedly decreased in all directions. No facial sensory deficit. No facial asymmetry. Hearing seems to be intact. Tongue is midline. Good gag. Motor examination: Outstretched hand with eyes closed, no drift noted. Tone is increased with cogwheel rigidity, left more than his right side. Deep tendon reflexes: Left side is hyperreflexic to compare with the right side. Plantars are upgoing on his both sides. Coordination is markedly dysmetric proportionate to his weakness and tremor. Gait is deferred at this time. WORKUP: Blood workup: Hemoglobin 10.7, hematocrit 13,9, hematocrit 40.5, platelet 345. Glucose 102. Sodium 139, potassium 3.6, chloride 99, bicarbonate 28, BUN 15, creatinine 0.6, GFR more than 60. Urine shows proteinuria, glucosuria, 1+ ketones. CONCLUSION: 1. Mr. Tobias Ramos has been presenting with new right-sided weakness, left side hyperreflexia, bilateral Babinski sign, with preexisting Parkinson disease. 2. 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 RECOMMENDATIONS: 1. The patient should be kept fall precaution. 2. Medication for Parkinson disease should be continued as he has been getting and Amantadine is added for his tremor with Klonopin for his good sleep. 3. The patient should get physical therapy. 4. Stroke prophylaxis. Aspirin is added and in the meantime blood workup as well as MRI of the brain and carotid Doppler also recommended for his central nervous system dysfunction. 5. The patient's condition has been well discussed with him. He agreed he may follow up recommendations. The patient will be followed while he is in the hospital. Rashi Yarbrough MD
--- NOTE | 2017-07-06 18:21 | MRI ---
PROCEDURE: MRI BRAIN WITHOUT CONTRAST HISTORY: new stroke process COMPARISON: None. TECHNIQUE: Multiplanar, multisequence MR images of the brain were obtained without intravenous contrast enhancement. FINDINGS: HEMORRHAGE: None DWI: No evidence of an acute or early subacute infarction. BRAIN PARENCHYMA: Good corticomedullary differentiation is seen. Diffuse expansion of the ventriculosulcal and cisternal spaces is appreciated with white matter signal changes compatible with diffuse cerebral atrophy and chronic microangiopathy. No suspicious extra-axial fluid collection is identified and the midline brain anatomy appears grossly nonfocal as imaged. There is no mass effect throughout. VENTRICLES: Unremarkable. No hydrocephalus. CRANIUM: Unremarkable. ORBITS: Grossly unremarkable. PARANASAL SINUSES/MASTOIDS: Right maxillary sinus mucosal inflammatory changes identified. VASCULAR SYSTEM: Skull base flow voids intact. OTHER FINDINGS: None. IMPRESSION: Age-appropriate age-related degenerative changes are identified without acute MR pathology evident.
[2017-07-07 07:20] LABS: BASO # 0.1 K/uL (0.0-0.2); EOS # 1.2 K/uL (0.0-0.7); EOS % 11.1 % (0.0-4.0); HEMOGLOBIN 13.6 g/dL (12.0-18.0); LYMPH # 2.3 K/uL (1.0-4.3); LYMPH % 20.9 % (20.0-40.0); MEAN CELL VOLUME 81.2 fL (80.0-94.0); MEAN CORPUSCULAR HEMOGLOBIN 26.8 pg (27.0-31.0); MONO % 8.8 % (0.0-10.0); NEUT # 6.4 K/uL (1.8-7.0); NEUT % 58.2 % (50.0-75.0); NRBC % 0.2 % (0.0-2.0); RBC 5.07 Mil/uL (4.40-5.90); RED CELL DISTRIBUTION WIDTH 15.4 % (11.5-14.5); WHITE BLOOD COUNT 11.1 K/uL (4.8-10.8)
[2017-07-07 07:27] LABS: ALB/GLOB RATIO 1.1 (1.0-2.1); ALBUMIN 3.8 g/dL (3.5-5.0); ALT/SGPT 10 U/L (21-72); AST/SGOT 28 U/L (17-59); BLOOD UREA NITROGEN 15 mg/dL (9-20); CALCIUM 8.9 mg/dl (8.6-10.4); GFR AFRICAN-AMERICAN > 60; GFR NON-AFRICAN AMERICAN > 60
[2017-07-07] MEDS: (Novolin R) Insulin Human Regular 100 units/ml vial SC SCH ×3 (08:19→17:20)
--- NOTE | 2017-07-07 08:33 | CARD ---
APPROVED REPORT EKG Measurement Heart [id number] <Conclusion> Normal sinus rhythm Normal ECG
[2017-07-07] MEDS: GlipiZIDE 10 mg SR Tab PO SCH ×2 (09:09→19:07)
[2017-07-07] MEDS: Carbidopa/Levodopa 25/250 PO SCH ×4 (10:20→20:14)
[2017-07-07] MEDS: Enoxaparin 40 mg Syringe SC SCH (10:20)
--- NOTE | 2017-07-07 11:09 | PN ---
DATE: 07/07/2017 NEUROLOGIC PROBLEM: End-stage Parkinson disease. PHYSICAL EXAMINATION: VITAL SIGNS: Blood pressure 101/65, mean arterial pressure of 77, respiratory rate 18, temperature 97.9 degrees Fahrenheit. GENERAL: The patient is arousable, communicable in Greek as well as Nigerien. Follows all commands. EXTREMITIES: Previously inability to lift his lower extremities on both sides, but able to do it today. NEUROLOGIC: Resting tremor on the left more than his right side. Coordination is normal. ASSESSMENT AND PLAN: Continue the present management, which has been tolerated by him. The patient should have physical therapy and gait training prior to the discharge. If possible, the patient should go for subacute rehabilitation to improve his strength and ambulation. Rashi Yarbrough MD
--- NOTE | 2017-07-07 12:19 | VASCLAB ---
PROCEDURE: HISTORY: ASSESS STENOSIS COMPARISON: None available. TECHNIQUE: Grayscale and duplex Doppler evaluation of the cervical carotid and vertebral arteries were performed. The common carotid, carotid bifurcations and cervical Internal Carotid Artery (ICA) and proximal External Carotid Artery (ECA) were evaluated. The vertebral arteries were evaluated for gross patency and flow direction. Report prepared by Eric Weaver, BS, RVT FINDINGS: RIGHT CAROTID ARTERIES: 1. Common Carotid Artery: No significant focal plaque formation of the right common carotid artery. Maximum Peak Systolic velocity: 92 cm/sec: End-diastolic velocity 21 cm/sec. 2. Carotid Bifurcation: plaque formation. Maximum Peak Systolic velocity: 75 cm/sec: End-diastolic velocity 16 cm/sec. 3. Internal Carotid Artery: Plaque description: 3.1. Proximal Segment: Peak systolic velocity 81 cm/sec: End-diastolic velocity 21 cm/sec - % stenosis 0-15% 3.2. Middle Segment: Peak systolic velocity 61 cm/sec: End-diastolic velocity 18 cm/sec - % stenosis 0-15% 3.3. Distal Segment: Peak systolic velocity 94 cm/sec: End-diastolic velocity 21 cm/sec - % stenosis 0-15% 4. External Carotid Artery: No significant focal plaque formation. Peak systolic velocity 93 cm/sec 5. ICA/CCA Ratio: 1.0 LEFT CAROTID ARTERIES: 1. Common Carotid Artery: No significant focal plaque formation of the left common carotid artery. Maximum Peak Systolic velocity: 127 cm/sec: End-diastolic velocity 22 cm/sec. 2. Carotid Bifurcation: plaque formation. Maximum Peak Systolic velocity: 127 cm/sec: End-diastolic velocity 20 cm/sec. 3. Internal Carotid Artery: Plaque description: 3.1. Proximal Segment: Peak systolic velocity 64 cm/sec: End-diastolic velocity 16 cm/sec - % stenosis 0-15% 3.2. Middle Segment: Peak systolic velocity 78 cm/sec: End-diastolic velocity 19 cm/sec - % stenosis 0-15% 3.3. Distal Segment: Peak systolic velocity 78 cm/sec: End-diastolic velocity 24 cm/sec - % stenosis 0-15% 4. External Carotid Artery: No significant focal plaque formation. Peak systolic velocity 106 cm/sec 5. ICA/CCA Ratio: 1.0 VERTEBRAL ARTERIES: 1. Right Vertebral Artery: The right vertebral artery flow direction is antegrade. 2. Left Vertebral Artery: The left vertebral artery flow direction is antegrade. OTHER FINDINGS: 1. Right Brachial Blood pressure: 130 mmHg. 2. Left Brachial Blood pressure: 128 mmHg. IMPRESSION: RIGHT: Duplex scan does not suggest hemodynamically significant stenosis of the right extracranial carotid arteries. LEFT: Duplex scan does not suggest hemodynamically significant stenosis of the left extracranial carotid arteries.
[2017-07-07 16:08] VITALS: BP 117/62; PULSE 82; TEMP 98.3; O2SAT 93
--- NOTE | 2017-07-08 23:09 | CP.PCM.DIS ---
Provider - Provider Date of Admission: 07/04/17 18:23 Attending physician: Nidhi Aj MD Hospital Course - Lab Results Lab Results: Most Recent Lab Values WBC 11.1 K/uL (4.8-10.8) H 07/07/17 06:28 RBC 5.07 Mil/uL (4.40-5.90) 07/07/17 06:28 Hgb 13.6 g/dL (12.0-18.0) 07/07/17 06:28 Hct 41.2 % (35.0-51.0) 07/07/17 06:28 MCV 81.2 fL (80.0-94.0) 07/07/17 06:28 MCH 26.8 pg (27.0-31.0) L 07/07/17 06: MCHC 33.0 g/dL (33.0-37.0) 07/07/17 06: RDW 15.4 % (11.5-14.5) H 07/07/17 06:28 Plt Count 268 K/uL (130-400) 07/07/17 06:28 MPV 9.0 fL (7.2-11.7) 07/07/17 06:28 Neut % (Auto) 58.2 % (50.0-75.0) 07/07/17 06:28 Lymph % (Auto) 20.9 % (20.0-40.0) 07/07/17 06:28 [place] % (Auto) 8.8 % (0.0-10.0) 07/07/17 06:28 Eos % (Auto) 11.1 % (0.0-4.0) H 07/07/17 06:28 Baso % (Auto) 1.0 % (0.0-2.0) 07/07/17 06:28 Neut # (Auto) 6.4 K/uL (1.8-7.0) 07/07/17 06:28 Lymph # (Auto) 2.3 K/uL (1.0-4.3) 07/07/17 06:28 [place] # (Auto) 1.0 K/uL (0.0-0.8) H 07/07/17 06:28 Eos # (Auto) 1.2 K/uL (0.0-0.7) H 07/07/17 06:28 Baso # (Auto) 0.1 K/uL (0.0-0.2) 07/07/17 06:28 ESR 3 mm/hr (0-15) 07/06/17 11:32 Sodium 142 mmol/L (132-148) 07/07/17 06:28 Potassium 3.5 mmol/L (3.6-5.2) L 07/07/17 06:28 Chloride 100 mmol/L (98-107) 07/07/17 06:28 Carbon Dioxide 31 mmol/L (22-30) H 07/07/17 06:28 Anion Gap 15 (10-20) 07/07/17 06:28 BUN 15 mg/dL (9-20) 07/07/17 06:28 Creatinine 0.8 mg/dL (0.8-1.5) 07/07/17 06:28 Est GFR ( Amer) > 60 07/07/17 06:28 Est GFR (Non-Af Amer) > 60 07/07/17 06:28 POC Glucose (mg/dL) 202 mg/dL (65-110) H 07/07/17 19:04 Random Glucose 72 mg/dL (75-110) L 07/07/17 06:28 Calcium 8.9 mg/dl (8.6-10.4) 07/07/17 06:28 Total Bilirubin 0.5 mg/dL (0.2-1.3) 07/07/17 06:28 AST 28 U/L (17-59) 07/07/17 06:28 ALT 10 U/L (21-72) L 07/07/17 06:28 Alkaline Phosphatase 83 U/L (38-126) 07/07/17 06:28 Troponin I < 0.0120 ng/mL (0.00-0.120) 07/04/17 17:54 NT-Pro-B Natriuret Pep 40.5 pg/mL (0-900) 07/04/17 17:54 Total Protein 7.4 g/dL (6.3-8.3) 07/07/17 06:28 Albumin 3.8 g/dL (3.5-5.0) 07/07/17 06:28 Globulin 3.6 gm/dL (2.2-3.9) 07/07/17 06:28 Albumin/Globulin Ratio 1.1 (1.0-2.1) 07/07/17 06:28 Triglycerides 79 mg/dL (0-149) 07/06/17 11:32 Cholesterol 173 mg/dL (0-199) 07/06/17 11:32 LDL Cholesterol Direct 110 mg/dL (0-129) 07/06/17 11:32 HDL Cholesterol 43 mg/dL (30-70) 07/06/17 11:32 Vitamin B12 > 1000 pg/mL (239-931) H 07/06/17 11:32 Folate 10.5 ng/mL 07/06/17 11:32 Free T4 1.45 ng/dL (0.78-2.19) 07/06/17 11:32 TSH 3rd Generation 9.93 mIU/L (0.46-4.68) H 07/06/17 11:32 Urine Color Yellow (YELLOW) 07/04/17 17:54 Urine Clarity Clear (Clear) 07/04/17 17:54 Urine pH 6.0 (5.0-8.0) 07/04/17 17:54 Ur Specific [place] 1.028 (1.003-1.030) 07/04/17 17:54 Urine Protein 1+ mg/dL (NEGATIVE) H 07/04/17 17:54 Urine Glucose (UA) 1+ mg/dL (Normal) H 07/04/17 17:54 Urine Ketones 1+ mg/dL (NEGATIVE) H 07/04/17 17:54 Urine Blood Negative (NEGATIVE) 07/04/17 17:54 Urine Nitrate Negative (NEGATIVE) 07/04/17 17:54 Urine Bilirubin Negative (NEGATIVE) 07/04/17 17:54 Urine Urobilinogen Normal mg/dL (0.2-1.0) 07/04/17 17:54 Ur Leukocyte Esterase Neg Gabriel/uL (Negative) 07/04/17 17:54 Urine WBC (Auto) 1 /hpf (0-5) 07/04/17 17:54 Urine RBC (Auto) 9 /hpf (0-3) H 07/04/17 17:54 Ur Squamous Epith Cells < 1 /hpf (0-5) 07/04/17 17:54 RPR Nonreactive (NONREACTIVE) 05/01/18 11:32 Discharge Plan - Discharge Medications Prescriptions: Amantadine [Amantadine 100 mg Cap] 100 mg PO BID #60 cap Aspirin [Ecotrin] 81 mg PO DAILY #30 tabec - Follow Up Plan Condition: GOOD Disposition: DISCHARGED TO HOME CARE Instructions: Dementia (Including Alzheimer Disease), Apraxia (DC), Parkinson Disease (DC), Amantadine, Aspirin Additional Instructions: Follow up in one week with Dr. Aj. Prescriptions sent to pharmacy electronically. Referrals: Nidhi Aj MD [Staff Provider] -
== END 2017-07-07 20:27 | disposition home health service (06) | DRG 57 ==
LOC: C.ER 16:56 → C.9E 18:23 → C.5S 22:51
PROVIDERS: ADMIT Internal Medicine; ATTEND Internal Medicine
DX: G20 Parkinson's disease (principal); F02.80 Dementia in other diseases classified elsewhere, unspecified severity, without behavioral disturbance, psychotic disturbance, mood disturbance, and anxiety; E11.40 Type 2 diabetes mellitus with diabetic neuropathy, unspecified; I10 Essential (primary) hypertension; R29.6 Repeated falls; R26.81 Unsteadiness on feet; Z91.81 History of falling; Z87.891 Personal history of nicotine dependence; Z79.4 Long term (current) use of insulin

== ENCOUNTER 2018-03-22 12:45 | Observation (INO) | payer MEDICARE, MEDICAID ==
[2018-03-22 12:46] VITALS: BMI 26.6
[2018-03-22] MEDS ORDERED: Sodium Chloride 0.9% 500 ML IV ONE ×2 (14:02→15:58)
[2018-03-22 14:16] LABS: BASO % 0.4 % (0.0-2.0); EOS # 0.4 K/uL (0.0-0.7); EOS % 3.1 % (0.0-4.0); HEMOGLOBIN 12.3 g/dL (12.0-18.0); LYMPH # 1.7 K/uL (1.0-4.3); LYMPH % 14.2 % (20.0-40.0); MEAN CELL VOLUME 80.3 fL (80.0-94.0); MEAN CORPUSCULAR HEMOGLOBIN 25.7 pg (27.0-31.0); MEAN PLATELET VOLUME 7.3 fL (7.2-11.7); MONO # 0.7 K/uL (0.0-0.8); MONO % 6.2 % (0.0-10.0); NEUT # 8.8 K/uL (1.8-7.0); NEUT % 76.1 % (50.0-75.0); RBC 4.76 Mil/uL (4.40-5.90); RED CELL DISTRIBUTION WIDTH 17.2 % (11.5-14.5); WHITE BLOOD COUNT 11.6 K/uL (4.8-10.8)
[2018-03-22 14:23] LABS: INR 1.1; PROTHROMBIN TIME 11.6 SECONDS (9.7-12.2)
[2018-03-22 14:38] LABS: CK-MB 4.24 ng/mL (0.0-3.38)
--- NOTE | 2018-03-22 14:43 | C.PDOC ---
History Of Present Illness 67 year old male with a PMHx of DM, HTN, and Parkinsons, brought in by ambulance for complaints of generalized weakness, present for the past 3-4 weeks. He is also complaining of chronic back pain. States he was seen by his PMD 3 weeks ago and at the time was instructed to come to the ER for admission for dehydration, but did not come in. At present he denies any chest pain, SOB, abdominal pain, nausea, vomiting, diarrhea, fever, or chills. Patient is also complaining of diffuse bodyaches. PMD- Dr. Aj Time Seen by Provider: 03/22/18 13:07 Chief Complaint (Nursing): Weakness/Neurological Deficit History Per: Patient History/Exam Limitations: no limitations Onset/Duration Of Symptoms: Days Current Symptoms Are (Timing): Still Present Past Medical History Reviewed: Historical Data, Nursing Documentation, Vital Signs Vital Signs: Last Vital Signs Temp 98.6 F 03/22/18 12:58 Pulse 94 H 03/22/18 12:58 Resp 16 03/22/18 12:58 BP 129/81 03/22/18 12:58 Pulse Ox 98 03/22/18 12:58 - Medical History PMH: Anxiety, Dementia, Depression, Diabetes, Fractures, HTN, Parkinson's Disease Denies: Chronic Kidney Disease - [facility] Procedures COLONOSCOPY (08/22/13) INJECT/INFUSE ELECTROLYT (06/22/13) INJECT/INFUSE NEC (06/22/13) Family History: States: No Known Family Hx - Social History Hx Tobacco Use: No Hx Alcohol Use: No Hx Substance Use: No - Immunization History Hx Tetanus Toxoid Vaccination: Yes Hx Influenza Vaccination: Yes Hx Pneumococcal Vaccination: Yes Review Of Systems Constitutional: Positive for: Weakness (generalized), Other (Fatigue). Negative for: Fever, Chills Cardiovascular: Negative for: Chest Pain Respiratory: Negative for: Cough, Shortness of Breath Gastrointestinal: Negative for: Nausea, Vomiting, Diarrhea Genitourinary: Negative for: Dysuria, Incontinence, Hematuria Musculoskeletal: Positive for: Back Pain (chronic) Neurological: Negative for: Weakness, Numbness, Other (paresthesia) Physical Exam - Physical Exam Appears: No Acute Distress, Other (Appears weak and fatigued) Skin: Normal Color, Warm, Dry Head: Atraumatic, Normacephalic Eye(s): bilateral: Normal Inspection, PERRL, EOMI Oral Mucosa: Dry Tongue: Fissured Neck: Normal ROM Chest: Symmetrical Cardiovascular: Rhythm Regular, No Murmur Respiratory: No Accessory Muscle Use, No Rales, Rhonchi (at the right base), Other (No respiratory distress) Gastrointestinal/Abdominal: Soft, Tenderness (mild suprapubic tenderness, negative McBurneys sign), No Guarding, No Rebound Extremity: Other (Mild resting tremor of the upper extremities) Extremity: Bilateral: Other (Strength equal bilaterally - 5/5 strength in the upper extremities, 3/5 in the lower extremities) Pulses: Left Dorsalis Pedis: Normal, Right Dorsalis Pedis: Normal Neurological/Psych: Oriented x3, Normal Speech ED Course And Treatment - Laboratory Results Result Diagrams: 03/22/18 14:07 03/22/18 14:07 Lab Results: PT 11.6 SECONDS (9.7-12.2) 03/22/18 14:07 INR 1.1 03/22/18 14:07 APTT 29 SECONDS (21-34) 03/22/18 14:07 Troponin I < 0.0120 ng/mL (0.00-0.120) 03/22/18 14:07 ECG: Interpreted By Me, Viewed By Me ECG Rhythm: Sinus Rhythm ECG Interpretation: No Acute Changes Interpretation Of ECG: Left axis deviation, no acute ST or T wave changes Rate From EC (bpm) O2 Sat by Pulse Oximetry: 98 (RA) Pulse Ox Interpretation: Normal - Other Rad CXR X-Ray: Read By Radiologist Interpretation: Accession No. : [id number]. Patient Name / ID : JUANA ROSE / [id number]. Exam Date : 03/22/2018 14:54:25 ( Approved ). Study Comment : Sex / Age : M / 67Y. Creator : Reema Cadet MD. Dictator : Reema Cadet MD. Foreclosure Home Inspector : Tapper Bit : Reema Cadet MD. Approver2 : Report Date : 03/22/2018 16:28:12. My Comment : . HISTORY: weakness. COMPARISON: Chest xray performed 07/04/17. TECHNIQUE: Chest, one view. FINDINGS: LUNGS: No focal consolidation. Please note that chest x-ray has limited sensitivity for the detection of pulmonary masses. PLEURA: No significant pleural effusion identified. No definite pneumothorax . CARDIOVASCULAR: Heart size appears within normal limits. No significant atherosclerotic calcification present. OSSEOUS STRUCTURES: Degenerative changes of the spine. Re-identified chronic right posterior rib fracture deformities. Chronic healed fracture deformity left mid clavicle. VISUALIZED UPPER ABDOMEN: Unremarkable. OTHER FINDINGS: None. IMPRESSION: No focal consolidation. Progress Note: Ordered blood work, UA, with coag panel and blood culture. NS IV fluids administered. CXR and EKG ordered and reviewed. - Physician Consult Information Time Consulting Physician Contacted: 15:55 Physician Contacted: Nidhi Aj Outcome Of Conversation: reviewed case, patient accepted for admission for observation of dehydration and generalized weakness Disposition Counseled Patient/Family Regarding: Studies Performed, Diagnosis - Disposition Disposition: HOSPITALIZED Disposition Time: 15:56 - Scribe Statement The provider has reviewed the documentation as recorded by the Rigoberto Negron Provider Attestation: All medical record entries made by the Rigoberto were at my direction and personally dictated by me. I have reviewed the chart and agree that the record accurately reflects my personal performance of the history, physical exam, medical decision making, and the department course for this patient. I have also personally directed, reviewed, and agree with the discharge instructions and disposition.
[2018-03-22 15:16] LABS: URINE BACTERIA RARE (<OCC); URINE BILIRUBIN NEGATIVE (NEGATIVE); URINE BLOOD NEGATIVE (NEGATIVE); URINE CLARITY Clear (Clear); URINE COLOR Yellow (YELLOW); URINE GLUCOSE (UA) 1+ mg/dL (Normal); URINE LEUKOCYTE ESTERASE NEG Leu/uL (Negative); URINE PROTEIN NEGATIVE (NEGATIVE); URINE UROBILINOGEN NORMAL mg/dL (0.2-1.0)
[2018-03-22 15:27] LABS: ALB/GLOB RATIO 1.3 (1.0-2.1); ALBUMIN 4.3 g/dL (3.5-5.0); ALT/SGPT 30 U/L (21-72); AST/SGOT 24 U/L (17-59); BLOOD UREA NITROGEN 18 mg/dL (9-20); CALCIUM 9.1 mg/dl (8.6-10.4); GFR NON-AFRICAN AMERICAN > 60
[2018-03-22] MEDS ORDERED: Sodium Chloride 0.9% 1,000 ML ONE (15:36)
--- NOTE | 2018-03-22 16:31 | RAD ---
HISTORY: weakness COMPARISON: Chest xray performed 07/04/17 TECHNIQUE: Chest, one view. FINDINGS: LUNGS: No focal consolidation. Please note that chest x-ray has limited sensitivity for the detection of pulmonary masses. PLEURA: No significant pleural effusion identified. No definite pneumothorax . CARDIOVASCULAR: Heart size appears within normal limits. No significant atherosclerotic calcification present. OSSEOUS STRUCTURES: Degenerative changes of the spine. Re-identified chronic right posterior rib fracture deformities. Chronic healed fracture deformity left mid clavicle. VISUALIZED UPPER ABDOMEN: Unremarkable. OTHER FINDINGS: None. IMPRESSION: No focal consolidation.
[2018-03-22] MEDS ORDERED: Carbidopa/Levodopa 25/250 PO STA (20:04)
[2018-03-22] MEDS ORDERED: Carbidopa/Levodopa 25/250 PO SCH (20:30)
[2018-03-22 22:16] VITALS: RESP 20
[2018-03-22] MEDS: (Lantus) Insulin Glargine, Recombinant SC SCH (22:24)
--- NOTE | 2018-03-22 23:06 | CP.PCM.HP ---
History of Present Illness - History of Present Illness History of Present Illness: Chief complaint: Increasing weakness, worsening Parkinson disease, and frequent falls. History of present illness: 66-year-old male with history of Parkinson disease, diabetes, hypertension, hypercholesterolemia, diabetic neuropathy came to the emergency room with increasing tremor, weakness. He is also having some nausea. He is concerned about increasing tremor. Patient has recently seen by neurologist, the medication was adjusted, but the patient was not happy. Patient is currently taking carbidopa levodopa, at least 5 times daily. Sometimes he takes even higher dose. In spite of that his condition is not improving. Still noticing tremor, bradykinesia. Past medical history: Hypertension, diabetes, hypercholesterolemia, Parkinson disease, with disability, and recently also had a fall Surgical history none Allergies: Allergic to no medication Personal history: Patient lives by himself. He has several health daily. Social history: Nonsmoker nonalcoholic. Review of system: Patient is currently having no headache, no chest pain. Feeling okay. Denies any dizziness at this time. He had some tremor and weakness in the past and Vital signs reviewed No neck vein distention noted Chest good air entry bilaterally, no wheezing or rales noted CVS regular heart sound, no murmur noted Abdomen soft, nontender. Extremities no pedal edema Increasing shaking and tremor noted. Patient is able to ambulate with walker Patient's labs today Vital signs reviewed Chest x-ray nonspecific. EKG showing normal sinus rhythm. No ST-T changes noted Assessment and recognition: 66-year-old male now admitted to the hospital with weakness. Labs nonspecific. Hypertension controlled. Diabetes stable. Parkinson disease, worseing decompensation noted. Patient also has a suspected dehydration with a dry mucosa. Recommended intravenous IV fluid. Close monitoring. Medications reconciliation. DVT and GI prophylaxis and will follow the patient Present on Admission - Present on Admission Any Indicators Present on Admission: No History of DVT/PE: No History of Uncontrolled Diabetes: No Urinary Catheter: No Decubitus Ulcer Present: No Past Patient History - Infectious Disease Hx of Infectious Diseases: None - Tetanus Immunizations Tetanus Immunization: Unknown - Past Medical History & Family History Past Medical History?: Yes - Past Social History Smoking Status: Never Smoked - CARDIAC Hx Hypertension: Yes - PULMONARY Hx Respiratory Disorders: No - NEUROLOGICAL Hx Dementia: Yes Hx Parkinson's Disease: Yes - HEENT Hx HEENT Problems: No - RENAL Hx Chronic Kidney Disease: No - ENDOCRINE/METABOLIC Hx Endocrine Disorders: Yes Hx Diabetes Mellitus Type 2: Yes - HEMATOLOGICAL/ONCOLOGICAL Hx Blood Disorders: No - INTEGUMENTARY Hx Dermatological Problems: No - MUSCULOSKELETAL/RHEUMATOLOGICAL Hx Fractures: Yes - GASTROINTESTINAL Hx Gastrointestinal Disorders: No - GENITOURINARY/GYNECOLOGICAL Hx Genitourinary Disorders: No - PSYCHIATRIC Hx Anxiety: Yes Hx Depression: Yes Hx Substance Use: No - SURGICAL HISTORY Hx Surgeries: Yes Hx Eye Surgery: Yes - ANESTHESIA Hx Anesthesia: Yes Hx Anesthesia Reactions: No Hx Malignant Hyperthermia: No Meds Allergies/Adverse Reactions: Allergies Allergy/AdvReac Type Severity Reaction Status Date / Time No Known Allergies Allergy Verified 03/22/18 13:18 Results - Vital Signs Recent Vital Signs: Last Vital Signs Temp 98.4 F 03/22/18 22:16 Pulse 91 H 03/22/18 22:16 Resp 20 03/22/18 22:16 BP 129/74 03/22/18 22:16 Pulse Ox 97 03/22/18 22:16 - Labs Result Diagrams: 03/22/18 14:07 03/22/18 14:07 Labs: Laboratory Results - last 24 hr 03/22/18 03/22/18 03/22/18 12:55 14:07 14:07 WBC 11.6 H RBC 4.76 Hgb 12.3 Hct 38.3 MCV 80.3 MCH 25.7 L MCHC 32.0 L RDW 17.2 H Plt Count 381 D MPV 7.3 Neut % (Auto) 76.1 H Lymph % (Auto) 14.2 L Grand % (Auto) 6.2 Eos % (Auto) 3.1 Baso % (Auto) 0.4 Neut # (Auto) 8.8 H Lymph # (Auto) 1.7 Grand # (Auto) 0.7 Eos # (Auto) 0.4 Baso # (Auto) 0.0 PT 11.6 INR 1.1 APTT 29 Sodium Potassium Chloride Carbon Dioxide Anion Gap BUN Creatinine Est GFR ( Amer) Est GFR (Non-Af Amer) POC Glucose (mg/dL) 138 H Random Glucose Calcium Total Bilirubin AST ALT Alkaline Phosphatase Total Creatine Kinase CK-MB (Mass) Troponin I Total Protein Albumin Globulin Albumin/Globulin Ratio Urine Color Urine Clarity Urine pH Ur Specific [place] Urine Protein Urine Glucose (UA) Urine Ketones Urine Blood Urine Nitrate Urine Bilirubin Urine Urobilinogen Ur Leukocyte Esterase Urine WBC (Auto) Urine RBC (Auto) Urine Bacteria 03/22/18 03/22/18 03/22/18 14:07 15:08 22:23 WBC RBC Hgb Hct MCV MCH MCHC RDW Plt Count MPV Neut % (Auto) Lymph % (Auto) Grand % (Auto) Eos % (Auto) Baso % (Auto) Neut # (Auto) Lymph # (Auto) Grand # (Auto) Eos # (Auto) Baso # (Auto) PT INR APTT Sodium 135 Potassium 3.9 Chloride 95 L Carbon Dioxide 30 Anion Gap 14 BUN 18 Creatinine 0.6 L Est GFR ( Amer) > 60 Est GFR (Non-Af Amer) > 60 POC Glucose (mg/dL) 122 H Random Glucose 120 H D Calcium 9.1 Total Bilirubin 0.5 AST 24 ALT 30 Alkaline Phosphatase 102 Total Creatine Kinase 130 CK-MB (Mass) 4.24 H Troponin I < 0.0120 Total Protein 7.6 Albumin 4.3 Globulin 3.3 Albumin/Globulin Ratio 1.3 Urine Color Yellow Urine Clarity Clear Urine pH 7.0 Ur Specific [place] 1.012 Urine Protein Negative Urine Glucose (UA) 1+ H Urine Ketones Trace Urine Blood Negative Urine Nitrate Negative Urine Bilirubin Negative Urine Urobilinogen Normal Ur Leukocyte Esterase Neg Urine WBC (Auto) < 1 Urine RBC (Auto) 2 Urine Bacteria Rare
[2018-03-23] MEDS: Carbidopa/Levodopa 25/250 PO SCH ×6 (02:29→20:35)
[2018-03-23 06:46] LABS: ALB/GLOB RATIO 1.4 (1.0-2.1); ALBUMIN 4.2 g/dL (3.5-5.0); ALT/SGPT 15 U/L (21-72); AST/SGOT 25 U/L (17-59); BLOOD UREA NITROGEN 14 mg/dL (9-20); CALCIUM 8.6 mg/dl (8.6-10.4); GFR NON-AFRICAN AMERICAN > 60
[2018-03-23 06:53] LABS: BASO # 0.1 K/uL (0.0-0.2); BASO % 0.7 % (0.0-2.0); EOS # 0.9 K/uL (0.0-0.7); EOS % 8.7 % (0.0-4.0); HEMOGLOBIN 12.9 g/dL (12.0-18.0); LYMPH # 2.3 K/uL (1.0-4.3); LYMPH % 23.1 % (20.0-40.0); MEAN CELL VOLUME 79.8 fL (80.0-94.0); MEAN CORPUSCULAR HEMOGLOBIN 26.4 pg (27.0-31.0); MEAN PLATELET VOLUME 7.9 fL (7.2-11.7); MONO # 1.1 K/uL (0.0-0.8); MONO % 10.6 % (0.0-10.0); NEUT # 5.7 K/uL (1.8-7.0); NEUT % 56.9 % (50.0-75.0); RBC 4.9 Mil/uL (4.40-5.90); RED CELL DISTRIBUTION WIDTH 17.1 % (11.5-14.5); WHITE BLOOD COUNT 10.1 K/uL (4.8-10.8)
[2018-03-23] MEDS: Enoxaparin 40 mg Syringe SC SCH (09:12)
[2018-03-23] MEDS ORDERED: GlipiZIDE 10 mg SR Tab PO SCH (10:00)
[2018-03-23] MEDS ORDERED: Pneumococcal 23-Valent Vaccine IM ONE (13:05)
--- NOTE | 2018-03-23 15:14 | CARD ---
APPROVED REPORT Date of service: 03/22/2018 EKG Measurement Heart [id number] <Conclusion> Normal sinus rhythm Normal ECG
[2018-03-23] MEDS: (Lantus) Insulin Glargine, Recombinant SC SCH (22:03)
[2018-03-24 07:28] LABS: BASO % 0.5 % (0.0-2.0); EOS # 0.6 K/uL (0.0-0.7); EOS % 8.5 % (0.0-4.0); HEMOGLOBIN 13.3 g/dL (12.0-18.0); LYMPH % 13.7 % (20.0-40.0); MEAN CELL VOLUME 79.4 fL (80.0-94.0); MEAN CORPUSCULAR HEMOGLOBIN 26.2 pg (27.0-31.0); MEAN PLATELET VOLUME 8.4 fL (7.2-11.7); MONO # 0.7 K/uL (0.0-0.8); MONO % 9.5 % (0.0-10.0); NEUT % 67.8 % (50.0-75.0); RBC 5.09 Mil/uL (4.40-5.90); RED CELL DISTRIBUTION WIDTH 17.3 % (11.5-14.5); WHITE BLOOD COUNT 7.3 K/uL (4.8-10.8)
[2018-03-24 08:15] LABS: ALB/GLOB RATIO 1.3 (1.0-2.1); ALBUMIN 4.1 g/dL (3.5-5.0); ALT/SGPT 14 U/L (21-72); AST/SGOT 31 U/L (17-59); BLOOD UREA NITROGEN 20 mg/dL (9-20); CALCIUM 8.9 mg/dl (8.6-10.4); GFR NON-AFRICAN AMERICAN > 60
[2018-03-24] MEDS: Carbidopa/Levodopa 25/250 PO SCH ×4 (08:20→17:00)
[2018-03-24] MEDS: Enoxaparin 40 mg Syringe SC SCH (09:04)
[2018-03-24] MEDS ORDERED: Potassium Chloride 20 mEq ER Tab PO ONE (12:00)
[2018-03-24 16:03] VITALS: BP 128/73; PULSE 100; TEMP 97.8; O2SAT 99
--- NOTE | 2018-03-24 16:25 | CP.PCM.PN ---
Subjective - Date & Time of Evaluation Date of Evaluation: 03/24/18 Time of Evaluation: 16:25 - Subjective Subjective: awake, alert, denies pain or distress. Objective - Vital Signs/Intake and Output Vital Signs (last 24 hours): Temp Pulse Resp BP Pulse Ox 97.8 F 100 H 20 128/73 99 03/24/18 15:00 03/24/18 15:00 03/24/18 15:00 03/24/18 15:00 03/24/18 15:00 - Medications Medications: Current Medications Amantadine HCl (Amantadine 100 Mg Cap) 100 mg PO BID [facility] Last Admin: 03/24/18 09:04 Dose: 100 mg Aspirin (Ecotrin) 81 mg PO DAILY [facility] Last Admin: 03/24/18 09:04 Dose: 81 mg Carbidopa/Levodopa (Sinemet) 1 tab PO 5XD [facility] Last Admin: 03/24/18 13:36 Dose: 1 tab Enoxaparin Sodium (Lovenox) 40 mg SC DAILY [facility] Last Admin: 03/24/18 09:04 Dose: 40 mg Glipizide (Glucotrol Xl) 10 mg PO BID [facility] Insulin Glargine (Lantus) 15 unit SC HS [facility] Last Admin: 03/23/18 22:03 Dose: 15 units Metformin HCl (Glucophage) 1,000 mg PO BIDCC [facility] Last Admin: 03/24/18 08:38 Dose: 1,000 mg Sitagliptin Phosphate (Januvia) 50 mg PO DAILY [facility] Last Admin: 03/24/18 09:04 Dose: 50 mg - Labs Labs: 03/24/18 07:04 03/24/18 07:04 PT 11.6 SECONDS (9.7-12.2) 03/22/18 14:07 INR 1.1 03/22/18 14:07 APTT 29 SECONDS (21-34) 03/22/18 14:07 Assessment and Plan - Assessment and Plan (Free Text) Assessment: 67 year old male with parkinson's desease, admitted with generalized weakness, seen and examined. Alert, awake, ambulates with assistance. No sob or chest pains, no acute distress. Discussed with DR Aj, plan to discharge home on home halfway PT. Advised to follow up in the office in 1 week.
== END 2018-03-24 17:28 | disposition home or self-care (01) ==
LOC: C.ER 12:45 → C.9E 15:56 → C.5S 22:00
PROVIDERS: ADMIT Internal Medicine; ATTEND Internal Medicine
DX: E86.0 Dehydration (principal); R53.1 Weakness; G20 Parkinson's disease; E11.40 Type 2 diabetes mellitus with diabetic neuropathy, unspecified; I10 Essential (primary) hypertension; E78.00 Pure hypercholesterolemia, unspecified; F03.90 Unspecified dementia, unspecified severity, without behavioral disturbance, psychotic disturbance, mood disturbance, and anxiety
CPT/HCPCS: 36415; 71045; 80053; 81001; 82550; 82553; 82948; 83735; 84100; 84484; 85025; 85610; 85730; 87040; 93005; 96372; 97116; 97163; 97167; 97530; 97535; 99285; G0378; G8978; G8979; G8987; G8988; J1650; J7040

== ENCOUNTER 2018-04-21 15:31 | Outpatient (CLI) | payer MEDICARE, MEDICAID | END 2018-04-21 15:32 | disposition home or self-care (01) | LOC: C.RADIC 15:31 | DX: M25.551 Pain in right hip (principal); M25.561 Pain in right knee ==

== ENCOUNTER 2018-04-22 18:58 | Inpatient (IN) | payer MEDICARE, MEDICAID ==
[2018-04-22 18:58] VITALS: BMI 26.6
[2018-04-22 19:18] VITALS: RESP 20
--- NOTE | 2018-04-22 19:54 | C.PDOC ---
History Of Present Illness 67 year old male presents to the ED c/o right hip and right leg pain for the past 4 days. Patient states pain worsens with movement and weight bearing. Patient denies fall, injury, trauma, weakness, numbness, headache, rash. Time Seen by Provider: 04/22/18 19:40 Chief Complaint (Nursing): Hip Pain History Per: Patient History/Exam Limitations: no limitations Onset/Duration Of Symptoms: Days (4) Current Symptoms Are (Timing): Still Present Severity: Severe Pain Scale Rating Of: 8 Recent travel outside of the [place] States: No Additional History Per: Patient - Hip Description Of Injury: Other Currently Unable To: Bear Weight Past Medical History Reviewed: Historical Data, Nursing Documentation, Vital Signs Vital Signs: Last Vital Signs Temp 97.8 F 04/22/18 19:14 Pulse 101 H 04/22/18 19:14 Resp 20 04/22/18 19:14 BP 128/80 04/22/18 19:14 Pulse Ox 96 04/22/18 19:14 - Medical History PMH: Anxiety, Dementia, Depression, Diabetes, Fractures, HTN, Parkinson's Disease Denies: Chronic Kidney Disease Surgical History: No Surg Hx - [facility] Procedures COLONOSCOPY (08/22/13) INJECT/INFUSE ELECTROLYT (06/22/13) INJECT/INFUSE NEC (06/22/13) Family History: States: Unknown Family Hx - Social History Hx Tobacco Use: No Hx Alcohol Use: No Hx Substance Use: No - Immunization History Hx Tetanus Toxoid Vaccination: Yes Hx Influenza Vaccination: Yes Hx Pneumococcal Vaccination: Yes Review Of Systems Constitutional: Negative for: Fever, Chills Eyes: Negative for: Vision Change Cardiovascular: Negative for: Chest Pain, Palpitations Respiratory: Negative for: Shortness of Breath Gastrointestinal: Negative for: Nausea, Vomiting, Abdominal Pain Musculoskeletal: Positive for: Leg Pain Skin: Negative for: Rash Neurological: Negative for: Weakness, Numbness, Headache Physical Exam - Physical Exam Appears: Non-toxic, No Acute Distress Skin: Warm, Dry Head: Normacephalic Eye(s): bilateral: Normal Inspection Oral Mucosa: Moist Neck: Supple Chest: Symmetrical Cardiovascular: Rhythm Regular Respiratory: No Rales, No Rhonchi, No Wheezing Gastrointestinal/Abdominal: Soft, No Tenderness, No Guarding, No Rebound Back: Normal Inspection, No Vertebral Tenderness Extremity: Tenderness (right hip to palpation), Capillary Refill (< 2 seconds) Extremity: Right: Normal ROM (limited right due to pain), Unable To Bear Weight, Bilateral: Atraumatic, Normal Color And Temperature Pulses: Left Dorsalis Pedis: Normal, Right Dorsalis Pedis: Normal Neurological/Psych: Oriented x3, Normal Speech, Normal Cognition Gait: Unable To Assess ED Course And Treatment - Laboratory Results Result Diagrams: 04/22/18 20:00 04/22/18 20:00 ECG: Interpreted By Me, Viewed By Me ECG Rhythm: Sinus Rhythm (102), Nonspecific Changes O2 Sat by Pulse Oximetry: 96 (ON RA) Pulse Ox Interpretation: Normal - CT Scan/US CT pelvis Other Rad Studies (CT/US): Read By Radiologist, Radiology Report Reviewed CT/US Interpretation: EXAM: CT Pelvis and Hip, right, without IV contrast. CLINICAL HISTORY: RIGHT HIP AND RIGHT POSTERIORLY PLVIS PAIN. TECHNIQUE: Axial computed tomography images of the pelvis and right hip without intravenous contrast. 0.00 mGy-cm. IV CONTRAST: Without. COMPARISON: None provided. FINDINGS: HIP/SI JOINTS: Focused images acquired of the right hip. No dislocation. There is mild arthritic narrowing seen within both hip and SI joints. BONES: No acute fracture or aggressive appearing osseous lesion. No suspicious focal osseous lesions. There is evidence of advanced degenerative dis c disease at L4-5 and L5-S1. SOFT TISSUES: The urinary bladder is mildly distended. Otherwise, the pelvic viscera are unremarkable. No fluid collection, hematoma or mass. No radiopaque foreign body or soft tissue gas. The urinary bladder is mildly distended. VASCULAR: Extensive atherosclerotic vascular plaquing is present. IMPRESSION: 1. No acute abnormality evident on images of the pelvis and focused images of the right hip. 2. Evidence of advanced degenerative disc disease at L4-5 and L5-S1. 3. Mild arthritic narrowing is seen within both hip and SI joints. 4. The urinary bladder is mildly distended. 5. Extensive atherosclerotic vascular plaquing. . Electronically signed on Apr 22, 2018 9:46:26 PM EST by: iFdel Bourgeois M.D., ANGEL Certified By ABR & CBCCT. Fellowship Trained MRI and CT Specialist. Progress Note: Plan: - Labs. - CT hip. - CT pelvis. - Morphine 2 mg IVP. - Zofran 4 mg IVP. - UA Disposition Discussed With : Nidhi Aj Comment: accepted the pt onhis service and took over the care at 10:12 PM Doctor Will See Patient In The: ED Counseled Patient/Family Regarding: Studies Performed, Diagnosis - Disposition Disposition: HOSPITALIZED Disposition Time: 22:12 Condition: FAIR Forms: [facility] (Khmer) - POA Present On Arrival: Poor Glycemic Control - Clinical Impression Clinical Impression: Hip pain, Ambulatory dysfunction - Scribe Statement The provider has reviewed the documentation as recorded by the Scribe Luis Daniel Morales All medical record entries made by the Scribe were at my direction and personally dictated by me. I have reviewed the chart and agree that the record accurately reflects my personal performance of the history, physical exam, medical decision making, and the department course for this patient. I have also personally directed, reviewed, and agree with the discharge instructions and disposition. Decision To Admit - Pt Status Changed To: Hospital Disposition Of: Inpatient - Admit Certification Admit to Inpatient:: After my assessment, the patient will require hospitalization for at least two midnights. This is because of the severity of symptoms shown, intensity of services needed, and/or the medical risk in this patient being treated as an outpatient. - InPatient: Physician Admission Certification: I certify that this patient requires 2 or more midnights of care for the following reason:: After my assessment, the patient will require hospitalization for at least two midnights. This is because of the severity of symptoms shown, intensity of services needed, and/or the medical risk in this patient being treated as an outpatient. - . Bed Request Type: Regular Admitting Physician: Nidhi Aj Patient Diagnosis: Hip pain, Ambulatory dysfunction
[2018-04-22 20:03] LABS: BASO # 0.1 K/uL (0.0-0.2); BASO % 0.8 % (0.0-2.0); EOS # 0.7 K/uL (0.0-0.7); EOS % 6.2 % (0.0-4.0); HEMOGLOBIN 12.2 g/dL (12.0-18.0); LYMPH # 2.1 K/uL (1.0-4.3); LYMPH % 17.9 % (20.0-40.0); MEAN CELL VOLUME 79.5 fL (80.0-94.0); MEAN CORPUSCULAR HGB CONC 31.5 g/dL (33.0-37.0); MEAN PLATELET VOLUME 7.3 fL (7.2-11.7); MONO # 0.6 K/uL (0.0-0.8); MONO % 4.7 % (0.0-10.0); NEUT # 8.4 K/uL (1.8-7.0); NEUT % 70.4 % (50.0-75.0); RBC 4.89 Mil/uL (4.40-5.90); RED CELL DISTRIBUTION WIDTH 16.8 % (11.5-14.5); WHITE BLOOD COUNT 11.9 K/uL (4.8-10.8)
[2018-04-22 20:37] LABS: ALB/GLOB RATIO 1.2 (1.0-2.1); ALT/SGPT 16 U/L (21-72); AST/SGOT 17 U/L (17-59); BLOOD UREA NITROGEN 13 mg/dL (9-20); CALCIUM 8.8 mg/dl (8.6-10.4); GFR NON-AFRICAN AMERICAN > 60
--- NOTE | 2018-04-22 22:45 | CP.PCM.HP ---
History of Present Illness - History of Present Illness History of Present Illness: Chief complaint: Increasing weakness, worsening Parkinson disease, and frequent falls. History of present illness: 66-year-old male with history of Parkinson disease, diabetes, hypertension, hypercholesterolemia, diabetic neuropathy came to the emergency room with increasing tremor, weakness. He is also having some nausea. He is concerned about increasing tremor. Patient has recently seen by neurologist, the medication was adjusted, but the patient was not happy. Patient is currently taking carbidopa levodopa, at least 5 times daily. Sometimes he takes even higher dose. In spite of that his condition is not improving. Still noticing tremor, bradykinesia. Past medical history: Hypertension, diabetes, hypercholesterolemia, Parkinson disease, with disability, and recently also had a fall Surgical history none Allergies: Allergic to no medication Personal history: Patient lives by himself. He has several health daily. Social history: Nonsmoker nonalcoholic. Review of system: Patient is currently having no headache, no chest pain. Feeling okay. Denies any dizziness at this time. He had some tremor and weakness in the past and Vital signs reviewed No neck vein distention noted Chest good air entry bilaterally, no wheezing or rales noted CVS regular heart sound, no murmur noted Abdomen soft, nontender. Patient has no pedal edema Having significant tenderness over the right pelvic area. CAT scan of the pelvis showing no evidence of fracture. Possible contusion. Admitted with the possible contusion right hip. Unable to walk. Patient's labs today Vital signs reviewed Chest x-ray nonspecific. EKG showing normal sinus rhythm. No ST-T changes noted Assessment and recognition: 66-year-old male now admitted to the hospital with weakness. Labs nonspecific. Hypertension controlled. Diabetes stable. Parkinson disease, worseing decompensation noted. Difficult time in getting up. Physical therapy recommended. Pain control. Discussed with the family. We will follow the patient Present on Admission - Present on Admission Any Indicators Present on Admission: No History of DVT/PE: No History of Uncontrolled Diabetes: No Urinary Catheter: No Decubitus Ulcer Present: No Past Patient History - Infectious Disease Hx of Infectious Diseases: None - Tetanus Immunizations Tetanus Immunization: Unknown - Past Medical History & Family History Past Medical History?: Yes - Past Social History Smoking Status: Never Smoked - CARDIAC Hx Hypertension: Yes - PULMONARY Hx Respiratory Disorders: No - NEUROLOGICAL Hx Dementia: Yes Hx Parkinson's Disease: Yes - HEENT Hx HEENT Problems: No - RENAL Hx Chronic Kidney Disease: No - ENDOCRINE/METABOLIC Hx Endocrine Disorders: Yes Hx Diabetes Mellitus Type 2: Yes - HEMATOLOGICAL/ONCOLOGICAL Hx Blood Disorders: No - INTEGUMENTARY Hx Dermatological Problems: No - MUSCULOSKELETAL/RHEUMATOLOGICAL Hx Fractures: Yes - GASTROINTESTINAL Hx Gastrointestinal Disorders: No - GENITOURINARY/GYNECOLOGICAL Hx Genitourinary Disorders: No - PSYCHIATRIC Hx Anxiety: Yes Hx Depression: Yes Hx Substance Use: No - SURGICAL HISTORY Hx Surgeries: Yes Hx Eye Surgery: Yes - ANESTHESIA Hx Anesthesia: Yes Hx Anesthesia Reactions: No Hx Malignant Hyperthermia: No Meds Allergies/Adverse Reactions: Allergies Allergy/AdvReac Type Severity Reaction Status Date / Time No Known Allergies Allergy Verified 04/22/18 19:25 Results - Vital Signs Recent Vital Signs: Last Vital Signs Temp 97.8 F 04/22/18 19:14 Pulse 101 H 04/22/18 19:14 Resp 20 04/22/18 19:14 BP 128/80 04/22/18 19:14 Pulse Ox 96 04/22/18 22:14 - Labs Result Diagrams: 04/22/18 20:00 04/22/18 20:00 Labs: Laboratory Results - last 24 hr 04/22/18 04/22/18 04/22/18 19:12 20:00 20:00 WBC 11.9 H D RBC 4.89 Hgb 12.2 Hct 38.8 MCV 79.5 L MCH 25.0 L MCHC 31.5 L RDW 16.8 H Plt Count 378 MPV 7.3 Neut % (Auto) 70.4 Lymph % (Auto) 17.9 L Aiken % (Auto) 4.7 Eos % (Auto) 6.2 H Baso % (Auto) 0.8 Neut # (Auto) 8.4 H Lymph # (Auto) 2.1 Aiken # (Auto) 0.6 Eos # (Auto) 0.7 Baso # (Auto) 0.1 Sodium 134 Potassium 3.6 Chloride 100 Carbon Dioxide 26 Anion Gap 12 BUN 13 Creatinine 0.6 L Est GFR ( Amer) > 60 Est GFR (Non-Af Amer) > 60 POC Glucose (mg/dL) 201 H Random Glucose 162 H D Calcium 8.8 Total Bilirubin 0.4 AST 17 D ALT 16 L Alkaline Phosphatase 120 Total Protein 7.3 Albumin 4.0 Globulin 3.3 Albumin/Globulin Ratio 1.2 Blood Type Antibody Screen 04/22/18 20:59 WBC RBC Hgb Hct MCV MCH MCHC RDW Plt Count MPV Neut % (Auto) Lymph % (Auto) Aiken % (Auto) Eos % (Auto) Baso % (Auto) Neut # (Auto) Lymph # (Auto) Aiken # (Auto) Eos # (Auto) Baso # (Auto) Sodium Potassium Chloride Carbon Dioxide Anion Gap BUN Creatinine Est GFR ( Amer) Est GFR (Non-Af Amer) POC Glucose (mg/dL) Random Glucose Calcium Total Bilirubin AST ALT Alkaline Phosphatase Total Protein Albumin Globulin Albumin/Globulin Ratio Blood Type O POSITIVE Antibody Screen Negative
[2018-04-23] MEDS: Tramadol 25 mg PO PRN (03:29)
[2018-04-23 07:06] LABS: SQUAMOUS EPITHIAL < 1 /hpf (0-5); URINE BILIRUBIN NEGATIVE (NEGATIVE); URINE BLOOD NEGATIVE (NEGATIVE); URINE CLARITY Clear (Clear); URINE COLOR Yellow (YELLOW); URINE GLUCOSE (UA) 1+ mg/dL (Normal); URINE LEUKOCYTE ESTERASE NEG Leu/uL (Negative); URINE PROTEIN 1+ mg/dL (NEGATIVE); URINE UROBILINOGEN NORMAL mg/dL (0.2-1.0)
[2018-04-23] MEDS: (Novolin R) Insulin Human Regular 100 units/ml vial SC SCH ×4 (08:14→22:00)
[2018-04-23] MEDS: Carbidopa/Levodopa 25/250 PO SCH ×5 (08:40→20:05)
[2018-04-23] MEDS: GlipiZIDE 10 mg SR Tab PO SCH ×2 (10:10→17:13)
--- NOTE | 2018-04-23 14:29 | CT ---
Date of service: 04/22/2018 PROCEDURE: CT Pelvis without contrast HISTORY: r hip pain COMPARISON: Comparison is made with the x-ray of hip dated 04/21/2018 TECHNIQUE: Contiguous axial images of the pelvis . No intravenous or oral contrast given. Coronal and sagittal reformats generated. Radiation dose: Total exam DLP = 515.06 mGy-cm. This CT exam was performed using one or more of the following dose reduction techniques: Automated exposure control, adjustment of the mA and/or kV according to patient size, and/or use of iterative reconstruction technique. FINDINGS: BLADDER: The urinary bladder is mildly to moderately distended. REPRODUCTIVE ORGANS: Unremarkable. VISUALIZED BOWEL: Unremarkable. PERITONEUM: Unremarkable, as visualized. No free fluid. No free air. LYMPH NODES: Unremarkable. No enlarged lymph nodes. BONES: There is no evidence of acute fracture or dislocation. Arthritic degenerative changes noted in the hip joint sacroiliac joints and lower spine. VASCULATURE: Diffuse vascular calcification is noted. OTHER FINDINGS: None. IMPRESSION: No evidence of acute fracture or dislocation. Incidental findings as described above.
[2018-04-24] MEDS: (Novolin R) Insulin Human Regular 100 units/ml vial SC SCH ×4 (07:48→21:41)
[2018-04-24] MEDS: Carbidopa/Levodopa 25/250 PO SCH ×5 (08:29→20:00)
[2018-04-24] MEDS: GlipiZIDE 10 mg SR Tab PO SCH ×2 (10:45→17:14)
--- NOTE | 2018-04-24 17:25 | CP.PCM.PN ---
Subjective - Date & Time of Evaluation Date of Evaluation: 04/23/18 Time of Evaluation: 17:24 - Subjective Subjective: Patient this morning today was sitting up, unable to eat, but he was having some difficult time in moving the hands and legs. Difficult time in getting up. Patient is having stiffness increasingly bilaterally in the upper extremities an d lower extremities. The pain is less in the right hip region. On examination: Vital signs are stable. Chest good air entry regular [place] nontender abdomen. Patient is having elevated blood sugar Assessment and recognition: 67-year-old male with a history of diabetes hypertension hypercholesterolemia Parkinson disease admitted to the hospital with a right hip contusion. No fracture evidence noted. We will start the patient on physical therapy. I recommended subacute rehab. We will continue the current treatment and will follow the patient Objective - Vital Signs/Intake and Output Vital Signs (last 24 hours): Temp Pulse Resp BP Pulse Ox 98.5 F 78 20 126/81 97 04/24/18 16:00 04/24/18 16:00 04/24/18 16:00 04/24/18 16:00 04/24/18 16:00 Intake and Output: 04/24/18 04/24/18 06:59 18:59 Intake Total 300 900 Output Total 1200 Balance 300 -300 - Medications Medications: Current Medications Amantadine HCl (Amantadine 100 Mg Cap) 100 mg PO BID [facility] [place] Last Admin: 04/24/18 17:12 Dose: 100 mg Aspirin (Ecotrin) 81 mg PO DAILY [facility] [place] Last Admin: 04/24/18 10:45 Dose: 81 mg Carbidopa/Levodopa (Sinemet) 1 tab PO 5XD [facility] [place] Last Admin: 04/24/18 17:15 Dose: 1 tab Glipizide (Glucotrol Xl) 10 mg PO BID [facility] [place] Last Admin: 04/24/18 17:14 Dose: 10 mg Heparin Sodium (Porcine) (Heparin) 5,000 units SC Q8 [facility] [place] Last Admin: 04/24/18 13:43 Dose: 5,000 units Insulin Human Regular (Novolin R) 0 unit SC ACHS [facility] [place]; Protocol Last Admin: 04/24/18 16:30 Dose: Not Given Ketorolac Tromethamine (Toradol) 30 mg IVP Q6 [facility] [place] Last Admin: 04/24/18 17:15 Dose: 30 mg Pantoprazole Sodium (Protonix Inj) 40 mg IVP DAILY [facility] [place] Last Admin: 04/24/18 10:45 Dose: 40 mg Sitagliptin Phosphate (Januvia) 50 mg PO DAILY [facility] Last Admin: 04/24/18 10:45 Dose: 50 mg Tramadol HCl (Ultram) 25 mg PO TID PRN PRN Reason: Pain, moderate (4-7) Last Admin: 04/23/18 03:29 Dose: 25 mg - Labs Labs: 04/22/18 20:00 04/22/18 20:00 APTT 29 SECONDS (21-34) 04/23/18 06:20
--- NOTE | 2018-04-24 17:26 | CP.PCM.PN ---
Subjective - Date & Time of Evaluation Date of Evaluation: 04/24/18 Time of Evaluation: 17:25 - Subjective Subjective: Patient is currently feeling well. Less pain noted in the right hip region. Denies any chest pain or shortness of breath. Family at bedside. I spoke to the patient's family in details. On examination: Vital signs are stable. Chest good air entry Regular [place] Nontender abdomen but Labs nonspecific. We will continue the current treatment. The hip contusion is improving at this time Assessment and recommendation: 67-year-old male with a history of diabetes hypertension diabetes high cholesterol osteoarthritis and Parkinson disease associate with the stiffness. Patient has a contusion right hip. Improving at this time. Physical therapy will be started. Will arrange for possible rehab evaluation if the family agrees. We will follow the patient Objective - Vital Signs/Intake and Output Vital Signs (last 24 hours): Temp Pulse Resp BP Pulse Ox 98.5 F 78 20 126/81 97 04/24/18 16:00 04/24/18 16:00 04/24/18 16:00 04/24/18 16:00 04/24/18 16:00 Intake and Output: 04/24/18 04/24/18 06:59 18:59 Intake Total 300 900 Output Total 1200 Balance 300 -300 - Medications Medications: Current Medications Amantadine HCl (Amantadine 100 Mg Cap) 100 mg PO BID [facility] Last Admin: 04/24/18 17:12 Dose: 100 mg Aspirin (Ecotrin) 81 mg PO DAILY [facility] Last Admin: 04/24/18 10:45 Dose: 81 mg Carbidopa/Levodopa (Sinemet) 1 tab PO 5XD [facility] Last Admin: 04/24/18 17:15 Dose: 1 tab Glipizide (Glucotrol Xl) 10 mg PO BID [facility] Last Admin: 04/24/18 17:14 Dose: 10 mg Heparin Sodium (Porcine) (Heparin) 5,000 units SC Q8 [facility] Last Admin: 04/24/18 13:43 Dose: 5,000 units Insulin Human Regular (Novolin R) 0 unit SC ACHS [facility]; Protocol Last Admin: 04/24/18 16:30 Dose: Not Given Ketorolac Tromethamine (Toradol) 30 mg IVP Q6 [facility] Last Admin: 04/24/18 17:15 Dose: 30 mg Pantoprazole Sodium (Protonix Inj) 40 mg IVP DAILY [facility] Last Admin: 04/24/18 10:45 Dose: 40 mg Sitagliptin Phosphate (Januvia) 50 mg PO DAILY [facility] Last Admin: 04/24/18 10:45 Dose: 50 mg Tramadol HCl (Ultram) 25 mg PO TID PRN PRN Reason: Pain, moderate (4-7) Last Admin: 04/23/18 03:29 Dose: 25 mg - Labs Labs: 04/22/18 20:00 04/22/18 20:00 APTT 29 SECONDS (21-34) 04/23/18 06:20
[2018-04-25] MEDS: Carbidopa/Levodopa 25/250 PO SCH ×5 (07:04→20:00)
[2018-04-25] MEDS: (Novolin R) Insulin Human Regular 100 units/ml vial SC SCH ×4 (08:54→21:07)
--- NOTE | 2018-04-25 09:40 | CARD ---
APPROVED REPORT Date of service: 04/22/2018 EKG Measurement Heart [id number] MD [id number] <Conclusion> Sinus tachycardia Otherwise normal ECG
[2018-04-25] MEDS: GlipiZIDE 10 mg SR Tab PO SCH ×2 (10:12→17:10)
[2018-04-25] MEDS: Promethazine 6.25 MG/5 ML CUP PO PRN (21:19)
[2018-04-26] MEDS: (Novolin R) Insulin Human Regular 100 units/ml vial SC SCH ×4 (08:31→21:11)
[2018-04-26] MEDS: Carbidopa/Levodopa 25/250 PO SCH ×5 (08:31→20:50)
[2018-04-26] MEDS ORDERED: Influenza Vaccine 60 mcg/0.5 mL SYR (4YR UP) IM ONE (10:00)
[2018-04-26] MEDS: GlipiZIDE 10 mg SR Tab PO SCH ×2 (10:24→17:32)
[2018-04-26] MEDS: Promethazine 6.25 MG/5 ML CUP PO PRN (14:50)
[2018-04-26] MEDS: Tramadol 25 mg PO PRN (21:28)
--- NOTE | 2018-04-26 23:09 | CP.PCM.PN ---
Subjective - Date & Time of Evaluation Date of Evaluation: 04/26/18 Time of Evaluation: 23:08 - Subjective Subjective: Patient is morning was feeling well. Patient needs assistance for feeding. He has no chest pain shortness of breath. The leg swelling is still noted, but pain is less. Patient did not have any physical therapy yet. He is mostly lying on the bed. I recommended physical therapy out of bed to chair. Patient is clinically stable otherwise. But he physically stable we will plan for discharge, if cleared by the physical therapist Objective - Vital Signs/Intake and Output Vital Signs (last 24 hours): Temp Pulse Resp BP Pulse Ox 98.4 F 97 H 20 151/89 H 97 04/26/18 16:00 04/26/18 16:00 04/26/18 16:00 04/26/18 16:00 04/26/18 16:00 Intake and Output: 04/26/18 04/27/18 18:59 06:59 Intake Total 750 300 Balance 750 300 - Medications Medications: Current Medications Amantadine HCl (Amantadine 100 Mg Cap) 100 mg PO BID [facility] Last Admin: 04/26/18 17:32 Dose: 100 mg Aspirin (Ecotrin) 81 mg PO DAILY [facility] Last Admin: 04/26/18 10:24 Dose: 81 mg Carbidopa/Levodopa (Sinemet) 1 tab PO 5XD [facility] Last Admin: 04/26/18 20:50 Dose: 1 tab Docusate Sodium (Colace) 100 mg PO TID [facility] Last Admin: 04/26/18 17:32 Dose: 100 mg Glipizide (Glucotrol Xl) 10 mg PO BID [facility] Last Admin: 04/26/18 17:32 Dose: 10 mg Heparin Sodium (Porcine) (Heparin) 5,000 units SC Q8 [facility] Last Admin: 04/26/18 21:28 Dose: 5,000 units Insulin Human Regular (Novolin R) 0 unit SC ACHS [facility]; Protocol Last Admin: 04/26/18 21:11 Dose: Not Given Lactulose (Enulose) 20 gm PO HS [facility] Last Admin: 04/26/18 21:28 Dose: 20 gm Pantoprazole Sodium (Protonix Inj) 40 mg IVP DAILY [facility] Last Admin: 04/26/18 10:25 Dose: 40 mg Promethazine HCl (Phenergan Syrup) 6.25 mg PO Q6 PRN PRN Reason: Cough Last Admin: 04/26/18 14:50 Dose: 6.25 mg Sitagliptin Phosphate (Januvia) 50 mg PO DAILY [facility] Last Admin: 04/26/18 10:24 Dose: 50 mg Tramadol HCl (Ultram) 25 mg PO TID PRN PRN Reason: Pain, moderate (4-7) Last Admin: 04/26/18 21:28 Dose: 25 mg - Labs Labs: 04/22/18 20:00 04/22/18 20:00 APTT 29 SECONDS (21-34) 04/23/18 06:20
[2018-04-27] MEDS: Tramadol 25 mg PO PRN (04:51)
[2018-04-27 07:36] LABS: BASO % 0.5 % (0.0-2.0); EOS # 0.6 K/uL (0.0-0.7); EOS % 6.8 % (0.0-4.0); HEMOGLOBIN 13.1 g/dL (12.0-18.0); LYMPH # 0.9 K/uL (1.0-4.3); LYMPH % 10.4 % (20.0-40.0); MEAN CELL VOLUME 79.2 fL (80.0-94.0); MEAN CORPUSCULAR HEMOGLOBIN 25.7 pg (27.0-31.0); MEAN CORPUSCULAR HGB CONC 32.5 g/dL (33.0-37.0); MEAN PLATELET VOLUME 9.1 fL (7.2-11.7); MONO # 1.2 K/uL (0.0-0.8); MONO % 14.6 % (0.0-10.0); NEUT # 5.7 K/uL (1.8-7.0); NEUT % 67.7 % (50.0-75.0); RBC 5.11 Mil/uL (4.40-5.90); RED CELL DISTRIBUTION WIDTH 16.9 % (11.5-14.5); WHITE BLOOD COUNT 8.4 K/uL (4.8-10.8)
[2018-04-27 07:39] LABS: ALB/GLOB RATIO 1.3 (1.0-2.1); ALBUMIN 4.1 g/dL (3.5-5.0); ALT/SGPT 16 U/L (21-72); AST/SGOT 39 U/L (17-59); BLOOD UREA NITROGEN 19 mg/dL (9-20); CALCIUM 8.9 mg/dl (8.6-10.4); GFR NON-AFRICAN AMERICAN > 60
[2018-04-27] MEDS: (Novolin R) Insulin Human Regular 100 units/ml vial SC SCH ×3 (07:46→17:18)
[2018-04-27] MEDS: Carbidopa/Levodopa 25/250 PO SCH ×4 (08:07→17:48)
[2018-04-27] MEDS ORDERED: Pantoprazole 40 mg EC Tab PO SCH (10:00)
[2018-04-27] MEDS: GlipiZIDE 10 mg SR Tab PO SCH ×2 (10:17→17:49)
[2018-04-27] MEDS ORDERED: Pneumococcal 23-Valent Vaccine IM ONE (14:49)
[2018-04-27 16:01] VITALS: BP 123/79; PULSE 91; TEMP 98.4; O2SAT 95
--- NOTE | 2018-05-18 02:16 | PN ---
DATE: 04/25/2018 SUBJECTIVE: The patient was seen by me at 6 p.m. The patient wants to go home. I recommended physical therapy and also rehab, but the patient does not want to go. Complaining of pain but less than before. Able to eat better. PHYSICAL EXAMINATION: VITAL SIGNS: Temperature 98.1, pulse 96, respirations 20, saturation 95% on room air, and blood pressure is 143/82. CHEST: Good air entry. HEART: Regular heart sounds. ABDOMEN: Nontender abdomen. EXTREMITIES: The patient is able to move the right lower extremity better than before. ASSESSMENT AND RECOMMENDATIONS: A 67-year-old male with history of diabetes, hypertension, Parkinson disease. Admitted with severe pain, intractable of the hip. No fracture identified. Continue the physical therapy. The patient is still having difficult time in getting out of the bed, I recommended the physical therapy, we will follow up the patient. Nidhi Aj MD
--- NOTE | 2018-05-18 05:09 | DS ---
HISTORY OF PRESENT ILLNESS: The patient is a 67-year-old male with a history of Parkinson disease, diabetes, hypertension, high cholesterol, diabetic neuropathy, and diabetic nephropathy, admitted to the hospital with increasing weakness, pain, and unable to get up, severe pain in the right hip region, and frequent falls. The patient had a fall the night before. According to the homemaker, the patient had also alcoholic intake, but the patient denies. PAST MEDICAL HISTORY: As noted above. PAST SURGICAL HISTORY: None. ALLERGIES: NO KNOWN DRUG ALLERGY. REVIEW OF SYSTEMS: Noted in the chart. The patient had a CAT scan of the pelvis showing no evidence of fracture, but possible contusion identified. But he was not able to stand upon leg, especially in the right hip, but there was severe tenderness in the right trochanteric area noted, unable to move the right leg at all even while he is lying down. COURSE IN THE HOSPITAL: A 67-year-old male admitted to the hospital with worsening Parkinson disease. Because of the severe right hip pain, unable to move, intractable pain, the patient needed a hospitalization. Pain medication administered. Physical therapy started after two days. As there was no fracture identified, the patient started physical therapy, slowly he was tolerating and he is clinically stable, he will be discharged home. He will follow up as an outpatient with outpatient physical therapy. His medications reviewed. A reconciliation was done. Nidhi Aj MD
== END 2018-04-27 20:17 | disposition home or self-care (01) | DRG 57 ==
LOC: C.ER 18:58 → C.3T 22:10
PROVIDERS: ADMIT Internal Medicine; ATTEND Internal Medicine
DX: G20 Parkinson's disease (principal); F02.80 Dementia in other diseases classified elsewhere, unspecified severity, without behavioral disturbance, psychotic disturbance, mood disturbance, and anxiety; S70.01XA Contusion of right hip, initial encounter; E11.40 Type 2 diabetes mellitus with diabetic neuropathy, unspecified; E78.00 Pure hypercholesterolemia, unspecified; I10 Essential (primary) hypertension; R29.6 Repeated falls; M19.90 Unspecified osteoarthritis, unspecified site; M79.604 Pain in right leg; R26.9 Unspecified abnormalities of gait and mobility

== ENCOUNTER 2018-07-19 10:48 | Outpatient (CLI) | payer MEDICARE, MEDICAID | END 2018-07-19 10:49 | disposition home or self-care (01) | LOC: C.USIC 10:48 | DX: R39.81 Functional urinary incontinence (principal); N40.0 Benign prostatic hyperplasia without lower urinary tract symptoms ==